=== PATIENT | male | born 1975 | race Caucasian/White ===

== ENCOUNTER 2025-01-02 07:34 | Emergency (ER) | payer OTHER, SELFPAY ==
--- NOTE | ~2025-01-02 | XR_ITS ---
XR chest 2V Ordering provider: Clarisse Nolan MD History: 49 years Male with . chest pain X 1 WEEK . Comparison: None. FINDINGS: MEDIASTINUM: The cardiac silhouette is not enlarged. LUNGS: No infiltrates, effusions or pneumothorax. OTHER: No free air under the diaphragm. Degenerative changes of the spine. IMPRESSION: No acute cardiopulmonary pathology. Reviewed, dictated and finalized at location A.
--- NOTE | ~2025-01-02 | CT_ITS ---
CTA chest abdomen pelvis Ordering provider: Clarisse Nolan MD History: . severe L chest pain, ?LLE tingling, hypertensive . Comparison: None. Technique: CT angiogram chest, abdomen and pelvis was performed following timed intravenous injection of contrast. Thin slice axial images and reformatted coronal images were obtained. Three dimensional reformatted images of the chest were also obtained using a [employer] workstation. Radiation reduction t echnique utilized. The dose-length product was 1863 mGy-cm. 100 mL Omnipaque 350 was given IV. FINDINGS: CHEST: --THORACIC AORTA: normal. No aneurysm, dissection or mediastinal hematoma. --GREAT VESSELS: Normal as visualized. --PULMONARY ARTERIES: No pulmonary embolus. --VISUALIZED THORACIC INLET: Normal. --MEDIASTINUM: Coronary arteries: Normal. Heart/other: The heart is not enlarged. Lymph nodes: No mediastinal or hilar adenopathy. Calcified left hilar lymph nodes are noted. --LUNGS: No pulmonary nodules or masses. No effusions. No pneumothorax. Calcified granuloma in the left lung b ase. Bilateral groundglass appearance in the lower lobes which may indicate atelectasis versus edema versus early pneumonia. Follow-up advised. --MUSCULOSKELETAL: Superficial soft tissues: The superficial soft tissues are normal. Bones: Age appropriate degenerative changes of the spine. ABDOMEN/PELVIS: --MUSCULOSKELETAL: Bones: Age appropriate degenerative changes of the spine. Old fracture in the right greater trochante r of the femur. Superficial soft tissues: Postoperative changes in the anterior abdominal wall. Otherwise, The superf icial soft tissues are normal. --UPPER ABDOMINAL ORGANS: Liver: Normal. Gallbladder: Contracted. Spleen: Normal. Stomach/duodenum: Normal. Pancreas: Normal. Adrenals: Normal. Kidneys: Normal. --PELVIC ORGANS: The bladder is normal. No bladder stones. --BOWEL AND MESENTERY: Colon: No evidence of diverticulitis. Appendix is not demonstrated. Small Bowel: Normal. No obstruction. Peritoneum/mesentery: No free air or free fluid. No mesenteric lymphadenopathy. --RETROPERITONEUM: No retroperitoneal lymphadenopathy. Small para-aortic lymph nodes are noted. --ARTERIES: ABDOMINAL AORTA: Normal No aneurysm or dissection. RENAL ARTERIES: Normal. CELIAC AXIS: Normal. SMA: Normal. EMIL: Normal. ILIAC AND VISUALIZED FEMORAL ARTERIES: Normal. MESENTERIC ARTERIES: Normal. IMPRESSION: CHEST: 1. No evidence of aneurysm or dissection. 2. Groundglass appearance seen in the lower lobes which may indicate atelectasis versus pneumonia ve rsus edema. Clinical correlation and follow-up advised. ABDOMEN/PELVIS: 1. No acute abdominal process with no evidence of appendicitis, diverticulitis or intestinal obstruc tion. 2. No evidence of aneurysm or dissection seen in the aorta. Reviewed, dictated and finalized at location A. IMPRESSION: CHEST: 1. No evidence of aneurysm or dissection. 2. Groundglass appearance seen in the lower lobes which may indicate atelectas is versus pneumonia versus edema. Clinical correlation and follow-up advised. ABDOMEN/PELVIS: 1. No acute abdominal process with no evidence of appendicitis, diverticulitis or intestinal obstruction. 2. No evidence of aneurysm or dissection seen in the aorta.
--- NOTE | 2025-01-02 07:36 | ECG_ITS ---
Test Date: 2025-01-02 07:39:49 Measurements Intervals [place] Rate: 87 P: 48 MN: 144 QRS: 21 QRSD: 83 T: 145 QT: 358 QTc: 433 Interpretive Statements SINUS RHYTHM POOR R-WAVE PROGRESSION NONSPECIFIC T-WAVE ABNORMALITY ABNORMAL ECG No previous ECG available for comparison Electronically Signed On 01-03-2025 09:49:42 CDT by Douglas Fernandes M.D.
--- OUTSIDE RECORDS SUMMARY | 2025-01-02 07:37 | XMS_ITS | Encounter Summary ---
Author Organization [facility] Address [address] [place] [address] Phone Care Team Providers Care Coverage Analyst Name Role Phone Ori Santiago MD Primary Care Provider [phone] Trace Meza MD Unavailable Ld Crowley MD Unavailable [phone] Provider, None Primary Care Provider Unavailabl e Reason for Visit * Reason Comments Medication Refill Encounter Details Date Type Department Care Team (Late st Contact Info) Description 02/12/2023 [facility]ill [facility] - [place] [address] [place] [address] Trace Meza MD #[address] [address] Medication Refill Social History Tobacco Use Types Packs/Day Years Used Date Smoking Tobacco: Never Smokeless Tobacco: Never Alcohol Use Standard Drinks/Week Comments No 0 (1 standard drink = 0.6 oz pur e alcohol) Sexually Active Control Partners Comments Yes Female Sex and Gender Information Value Date Recorded Sex Assigned at Male 06/17/2024 6:48 AM MACHINERY MECHANIC Legal Sex Male 11:35 PM CDT Gender Identity Male 06/17/2024 6:48 AM MACHINERY MECHANIC Sexual Orientation Not on file documented as of this encounter Miscellaneous Notes * Telephone Encounter - Lisa Lennon RN - 02/13/2023 8:50 AM CDT Requested Prescriptions Pending Prescriptions Disp Refills ??? Continuous Blood Gluc Sensor (Dexcom G6 Sensor) Misc [Pharmacy Med Name: DEXCOM G6 SENSOR] 3 Sig: USE 1 EACH BY DOES NOT APPLY ROUTE EVERY 10 DAYS. CHANGE SENSOR EVERY 10 DAYS. Next appt: 03/02/2023 documented in this encounter Plan of Treatment Upcoming Encounters Date Type Department Care Team (Late st Contact Info) Description 01/11/2025 9:30 AM CDT Office Visit [facility] Endocrinology - [place] [address] [place] [address] Trace Meza MD #[address] [phone] 03/22/2025 9:00 AM CDT Office Visit [facility] Endocrinology [facility] [address] [place] [address] Trace Meza MD #[address] [phone] documented as of this encounter Visit Diagnoses Not on filedocumented in this encounter Care Teams Coverage Analyst Relationship Specialty Start Date End Date Ori Santiago MD [address] [place] [address] [address] [place] [address] PCP - General Primary Care 06/19/22 06/16/24 Provider, None [place] PCP - General 06/17/24 Trace Meza MD #[address] [phone] Consulting Physician Endocrinology 04/06/23 Ld Crowley MD #2 [facility] [address] [place] [address] Consulting Physician Urology 09/21/23 documented as of this encounter
--- OUTSIDE RECORDS SUMMARY | 2025-01-02 07:37 | XMS_ITS | Encounter Summary ---
Author Organization [facility] Address [address] [place] [address] Phone Care Team Providers Care Factory Process Workers Name Role Phone Provider, None Primary Care Provider Unavailabl e Ori Santiago MD Primary Care Provider [phone] Trace Meza MD Unavailable Ld Crowley MD Unavailable Provider, None Primary Care Provider Unavailabl e Reason for Visit * Reason Comments Medication Refill Encounter Details Date Type Department Care Team (Late st Contact Info) Description 12/01/2021 Refill [facility] - [place] [address] [place] [address] Trace Meza MD #[address] [address] Medication Refill Social History Tobacco Use Types Packs/Day Years Used Date Smoking Tobacco: Never Smokeless Tobacco: Never Alcohol Use Standard Drinks/Week Comments No 0 (1 standard drink = 0.6 oz pur e alcohol) Sexually Active Control Partners Comments Yes Female Sex and Gender Information Value Date Recorded Sex Assigned at Male 06/17/2024 6:48 AM MAILROOM MESSENGER Legal Sex Male 11:35 PM CDT Gender Identity Male 06/17/2024 6:48 AM MAILROOM MESSENGER Sexual Orientation Not on file documented as of this encounter Miscellaneous Notes * Telephone Encounter - Vale Mcdonough CMA - 12/02/2021 8:35 AM CDT Patient calling requesting refill of: Requested Prescriptions Pending Prescriptions Disp Refills ??? HumuLIN R U-500 KwikPen 500 UNIT/ML Solution Pen-injector [Pharmacy Med Name: HUMULIN R 500 UNIT/ML KWIKPEN] 1 Sig: INJECT 170 UNITS AT BREAKFAST AND 150 UNITS AT DINNER Last fill: Patients next office visit with ENDO is: 12/20/2021 documented in this encounter Plan of Treatment Upcoming Encounters Date Type Department Care Team (Late st Contact Info) Description 01/11/2025 9:30 AM CDT Office Visit [facility] - Endocrinology - [place] [address] [place] [address] Trace Meza MD #[address] [address] 03/22/2025 9:00 AM CDT Office Visit [facility] Endocrinology - [place] [address] [place] [address] Trace Meza MD #[address] [address] documented as of this encounter Visit Diagnoses Not on filedocumented in this encounter Care Teams Factory Process Workers Relationship Specialty Start Date End Date Provider, None [place] PCP - General 03/28/21 06/18/22 Ori Santiago MD [address] [place] [address] [facility] [address] [place] [address] PCP - General Primary Care 06/19/22 06/16/24 Provider, None [place] PCP - General 06/17/24 Trace Meza MD #[address] [place] [address] Consulting Physician Endocrinology 04/06/23 Ld Crowley MD [address] [facility] [address] [place] [address] Consulting Physician Urology 09/21/23 documented as of this encounter
--- OUTSIDE RECORDS SUMMARY | 2025-01-02 07:37 | XMS_ITS | Clinical Summary ---
Author Organization [facility] Address [address] [place] [address] Phone Care Team Providers Care Metal Expediter Name Role Phone Trace Meza MD Unavailable Ld Crowley MD Unavailable [phone] Provider, None Primary Care Provider Unavailabl e Allergies Active Allergy Reactions Criticality Noted Date Comments Amlodipine Nausea 07/05/2018 Iodinated Contrast Media Anaphylaxis 07/09/2018 Ibuprofen Hives 07/02/2018 Medications Blood Glucose Monitoring Suppl Device Test four times daily. 1 Each 08/12/19 20 Active Lancets Misc Test four times daily. 400 Lancet 3 08/12/19 20 Active Glucose Blood Strip Test four times daily. 400 Strip 3 08/12/19 20 Active Insulin Syringe-Needle U-100 (INSULIN SYRINGE 1CC/30GX5/16) 30G X 5/16 1 ML Misc Use to inject insulin 2x daily 200 Each 3 05/30/20 20 Active Glucose Blood (OneTouch Verio) Strip Test blood glucose 4x daily. 400 Strip 3 06/02/20 22 Active Blood Glucose Monitoring Suppl (OneTouch Verio) w/Device Kit 1 Kit by Does not apply route 4 times daily. Test blood glucose 4x daily. 1 Kit 06/02/20 22 Active OneTouch Delica Lancets 33G Misc 1 Lancet by Does not apply route 4 times daily. Test blood glucose 4x daily. 400 Lancet 3 06/02/20 Active aspirin 81 MG Chewable Tablet Chew 1 tablet every day by oral route. 04/20/20 Active polyethylene glycol (GLYCOLAX, MIRALAX) 17 g PackIndication s:Constipation Take 1 Packet by mouth 2 times daily as needed for Constipation - 1st line. Dissolve in 4-8 oz of liquid. Indications: Constipation 90 Packet 10/08/19 Active Additional Information Patient not taking.Reported on 12/19/2024 senna (SENOKOT) 8.6 MG Tablet Take 1 Tablet by mouth 2 times daily as needed for Constipation - 2nd line. 30 Tablet 10/08/19 Active Additional Information Patient not taking.Reported on 12/19/2024 HYDROcodone-ac etaminophen (NORCO) 10-325 MG TabletIndicati ons:Greater trochanter fracture (HCC) Take 1 Tablet by mouth every 6 hours as needed for Moderate or more severe pain. 30 Tablet 10/08/19 Active Additional Information Patient not taking.Reported on 12/19/2024 naloxone HCl (Narcan) 4 MG/0.1ML Liquid 1 [place] by Nasal route as needed for Opioid Reversal. Administer in one nostril for symptoms of overdose (severe sleepiness, breathing problems, not responsive). Call 911. May repeat 1 spray in alternate nostril in 2-3 minutes if needed. 2 Each 11/23/19 24 Active Additional Information Patient not taking.Reported on 12/19/2024 Continuous Glucose Transmitter (Dexcom G6 Transmitter) Misc USE 1 EACH BY DOES NOT APPLY ROUTE EVERY 90 DAYS. CHANGE TRANSMITTER EVERY 90 DAYS. 1 Each 12/18/19 24 Active ondansetron (ZOFRAN-ODT) 4 MG TABLET DISPERSIBLE Take 1 Tablet by mouth every 6 hours as needed for Nausea - 1st line. 10 Tablet 1 02/08/20 24 Active Additional Information Patient not taking.Reported on 12/19/2024 Continuous Glucose Sensor (Dexcom G7 Sensor) Misc Every 10 days 9 Each 3 03/14/20 24 Active testosterone cypionate (DEPO-TESTOSTE NAV) 200 MG/ML Solution INJECT 1 ML EVERY 2 WEEKS BY INTRAMUSCULAR ROUTE FOR 30 DAYS.-PRIOR AUTH DENIED 07/25/19 25 Active Insulin Pen Needle 31G X 5 MM Misc Use to inject insulin twice daily 200 Pen Needle 3 09/20/19 25 Active Ozempic, 2 MG/DOSE, 8 MG/3ML Solution Pen-injector 2 mg by Subcutaneous route once a week. 9 mL 1 09/20/19 Active sildenafil (REVATIO) 20 MG Tablet 100 mg daily as needed for ED 09/20/19 Active Additional Information Patient not taking.Reported on 12/19/2024 Continuous Glucose Senior Care Provider (Dexcom G7 Senior Care Provider) Device Use to check blood glucose 4x daily. 1 Each 09/29/19 Active metFORMIN (GLUCOPHAGE) 1000 MG Tablet TAKE 1 TABLET BY MOUTH TWICE A DAY WITH FOOD 180 Tablet 1 11/19/19 Active insulin regular human, CONCENTRATED, (HumuLIN R U-500 KwikPen) 500 UNIT/ML Solution Pen-injector 120 units in the morning and 180 units in the evening 60 mL 1 12/20/19 Active insulin regular human, CONCENTRATED, (HumuLIN R U-500 KwikPen) 500 UNIT/ML Solution Pen-injector 90 units at breakfast and 60 units at dinner 09/20/192024 Discontinued Active Problems Problem Noted Date Diagnosed Date HLD (hyperlipidemia) 10/08/2023 GERD (gastroesophageal reflux disease) Diabetes mellitus 10/08/2023 SBO (small bowel obstruction) 10/08/2023 Greater trochanter fracture 10/07/2023 Hypoglycemia 08/12/2019 Erectile dysfunction 04/20/2019 Class 3 severe obesity due t o excess calories with serious comorbidity and body mass index (BMI) of 45.0 to 49.9 in adult 11/12/2018 Acute kidney injury 07/22/2018 Hyperglycemia 07/22/2018 Sepsis due to undetermined organism 07/05/2018 Ventral hernia with obstruction and without gang christos 07/03/2018 Type 2 diabetes mellitus wit h hyperglycemia, with long-term current use of insulin 07/03/2018 Morbid obesity 07/03/2018 Hypertension 07/03/2018 Fracture of forearm 11/12/2017 Encounters Date Type Department Care Team Description 12/19/2024 8:45 AM CDT [facility] Visit [facility] [place] [address] Trace Meza MD Type 2 diabetes mellitus with hyperglycemia, with long-term current use of insulin (HCC) (Primary Dx); Class 3 severe obesity due to excess calories with serious comorbidity and body mass index (BMI) of 40.0 to 44.9 in adult; Insulin dose changed (HCC); Medication side effect; Hypoglycemia Discharge Disposition: Discharged to home or Selfcare 12/19/2024 Travel 12/16/[facility] [place] [address] Trace Meza MD Medication Refill 11/18/2024 [facility] [place] [address] Trace Meza MD Medication Refill from Last 3 Months Immunizations Immunization Administration Dates Next Due TDAP Vaccine 10/23/2017 Family History Medical History Relation Name Comments No Known Problems Brother No Known Problems Daughter Diabetes Father Other-comment Father covid No Known Problems Half-Brother 1 No Known Problems Half-Brother 2 No Known Problems Mother Leukemia/Lymphoma Sister No Known Problems Son Relation Name Status Comments Brother Alive Daughter Alive Father Half-Brother 1 Alive Same father Half-Brother 2 Alive Same father Maternal Grandfather Maternal Grandmother Mother Paternal Grandfather Paternal Grandmother Sister Alive Son Alive Social History Tobacco Use Types Packs/Day Years Used Date Smoking Tobacco: Never Smokeless Tobacco: Never Tobacco Cessation:Counseling Given: Not Answered Alcohol Use Standard Drinks/Week Comments No 0 (1 standard drink = 0.6 oz pur e alcohol) [facility] Utilities Answer Date Recorded In the past 12 months has e [employer], [employer], oil, or water [employer] threatened to shut off services in your home? No 10/07/2023 Hunger Vital Sign Answer Date Recorded Within the past 12 months, y ou worried that your food would run out before you got the money to buy more. Never true 10/07/19 24 Within the past 12 months, t he food you bought just didn't last and you didn't have money to get more. Never true 10/07/2023 PRAPARE - Transportation Answer Date Re corded In the past 12 months, has l ack of transportation kept you from medical appointments or from getting medications? No 09/20 In the past 12 months, has l ack of transportation kept you from meetings, work, or from getting things needed for daily living? No 10/07/2023 Housing Stability Vital Sign Answer Luis e Recorded In the last 12 months, was t here a time when you were not able to pay the mortgage or rent on time? No 10/07/2023 In the last 12 months, how many places have you lived? 1 10/07/2023 In the last 12 months, was t here a time when you did not have a steady place to sleep or slept in a senior living (including now)? No 10/07/2023 Sexually Active Control Partners Comments Yes Female Sex and Gender Information Value Date Recorded Sex Assigned at Male 06/17/2024 6:48 AM COLORER HIDES AND SKINS Legal Sex Male 11:35 PM CDT Gender Identity Male 06/17/2024 6:48 AM COLORER HIDES AND SKINS Sexual Orientation Not on file Last Filed Vital Signs Vital Sign Reading Time Taken Comments Blood Pressure 156/96 12/19/2024 8:42 AM CDT Pulse 106 12/19/2024 8:42 AM CDT Temperature 36.9 C (98.4 F) 12/19/2024 8:42 AM CDT Respiratory Rate 22 12/19/2024 8:42 AM CDT Oxygen Saturation 97% 12/19/2024 8:42 AM CDT Inhaled Oxygen Concentration - - Weight 122.1 kg (269 lb 3.2 oz) 12/19/2024 8:42 AM CDT Height 170.2 cm (5' 7) 06/17/2024 6:28 AM COLORER HIDES AND SKINS Body Mass Index 42.16 06/17/2024 6:28 AM COLORER HIDES AND SKINS Plan of Treatment Upcoming Encounters Date Type Department Care Team (Late st Contact Info) Description 01/11/2025 9:30 AM CDT Office Visit [facility] - Endocrinology - [place] [address] [place] [phone] Trace Meza MD [address] [place] [address] 03/22/2025 9:00 AM CDT Office Visit [facility] - Endocrinology [place] [address] [place] [address] Trace Meza MD [address] [address] Health Maintenance Due Date Last Done Comments Diabetes: Eye Exam 1976 Hepatitis C Virus (HCV) Screening 1976 Hepatitis B Immunization (1 of 3 - 19+ 3-dose series) 1995 Pneumococcal Immunization Combined (1 of 2 - PCV) 1995 Cologuard 2021 Colonoscopy 2021 Colorectal Cancer Screening 2021 Immunochemical Fecal Occult Blood 2021 SARS-COV-2 Immunization ( season) 2024 Influenza Immunization (#1) 2025 Diabetes: Foot Exam 05/16/2025 05/16/2024 Diabetes: Nephropathy Screening 06/17/2025 06/17/2024, 09/27/2023, 09/14/2023, Additional history exists Diabetes: Hemoglobin A1c 06/20/202512/19/ 025, 08/19/2024, 05/16/2024, Additional history exists Td Immunization Every 10 Years (Adults With 1 Tdap) 10/24/2027 10/23/2017 Respiratory Syncytial Virus (RSV) Immunization (Adult) (1 - 1-dose 75+ series) 2051 DTaP/Tdap/Td Immunization Discontinued 10/23/2017 Human Papillomavirus (HPV) Immunization Aged Out No longer eligible based on patient's age to complete this topic Meningococcal Immunization (ACWY) Aged Out No longer eligible based on patient's age to complete this topic Rotavirus Immunization Aged Out No lo nger eligible based on patient's age to complete this topic Medical Devices Implanted Type Area Energy Efficiency Specialist Device Identifier Shelf Expiration Date Model / Serial / Lot Mesh Srg Ventralight St Sepra Echo Ps 9x7in Mfl Ltwt Abs Loprfl Strl Seprafilm Polyp Hydrogel - [id number] Implanted:Qty: 1 on 07/03/2018 by Mehran Del Cid MD at [facility] IMPLANT N/A: Abdomen [employer] 03/19/2020 [id number] / [id number] / [id number] Procedures Procedure Name Priority Date/Time Associated Diagnosis Comments POCT GLYCOSYLATED HEMOGLOBIN Routine 12/19/2024 8:47 AM CDT Type 2 diabetes mellitus with hyperglycemia, with long-term current use of insulin (HCC) CMP (COMPREHENSIVE METABOLIC PANEL) STAT 06/17/2024 6:43 AM COLORER HIDES AND SKINS from Last 3 Months or Most Recently Relevant to Health Maintenance Results * (ABNORMAL) POCT GLYCOSYLATED HEMOGLOBIN (12/19/2024 8:47 AM CDT) HGB-A1C 12.4(A) 4 - 6 % Blood 12/19/2024 8:47 AM CDT us Trace Meza MD POINT OF CARE TESTING (MANUAL) F inal Result * (ABNORMAL) Comprehensive Metabolic Panel (Cmp) [id number] (06/17/2024 6:43 AM COLORER HIDES AND SKINS) SODIUM 139 136 - 145 mmol/L 06/17/2024 7:11 AM COLORER HIDES AND SKINS [facility] POTASSIUM 3.9 3.5 - 5.1 mmol/L 06/17/2024 7:11 AM COLORER HIDES AND SKINS [facility] CHLORIDE 110(H) 98 - 107 mmol/L 06/17/2024 7:11 AM COLORER HIDES AND SKINS [facility] CO2, VENOUS 21(L) 22 - 30 mmol/L 06/17/2024 7:11 AM COLORER HIDES AND SKINS [facility] ANION GAP 11.9 <18.0 mmol/L 06/17/2024 7:11 AM COLORER HIDES AND SKINS [facility] GLUCOSE 164(H) 70 - 99 mg/dL 06/17/2024 7:11 AM COLORER HIDES AND SKINS [facility] BUN 15 9 - 21 mg/dL 06/17/2024 7:11 AM [facility] CREATININE, BLOOD 1.09 0.70 - 1.30 mg/dL 06/17/2024 7:11 AM COLORER HIDES AND SKINS [facility] BUN/CREATININE RATIO 14 12 - 20 ratio 06/17/2024 7:11 AM [facility] TOTAL PROTEIN 6.7 6.3 - 8.2 g/dL 06/17/2024 7:11 AM [facility] ALBUMIN 3.6 3.5 - 5.0 g/dL 06/17/2024 7:11 AM [facility] A/G RATIO 1.2 1.0 - 2.2 06/17/2024 7:11 AM [facility] CALCIUM 9.2 8.7 - 10.5 mg/dL 06/17/2024 7:11 AM [facility] T BILI 0.6 0.2 - 1.2 mg/dL 06/17/2024 7:11 AM [facility] SGOT (AST) 16 5 - 34 U/L 06/17/2024 7:11 AM [facility] SGPT (ALT) 12 0 - 55 U/L 06/17/2024 7:11 AM [facility] ALKALINE PHOSPHATASE 72 40 - 150 U/L 06/17/2024 7:11 AM [facility] GFR, ESTIMATED >60 >=60 06/17/2024 7:11 AM [facility] Comment: Creatinine Clearance is the preferred criteria for selecting drug dose adjustments in renally impaired patients. The GFR is provided as additional pertinent clinical information. GFR is reported in mL/min/1.73 sq m. Calculation based on the Chronic Kidney Disease Epidemiology Collaboration (CKD- EPI) equation refit without adjustment for race. GFR, EST. >60 >=60 024 7:11 AM [facility] GFR, EST. NONAFRICAN >60 >=60 06/17/2024 7:11 AM [facility] Blood Venipuncture / Unknown 06/17/2024 6:43 AM COLORER HIDES AND SKINS 06/17/2024 6:48 AM COLORER HIDES AND SKINS Jono Bhatti MD CHEMISTRY ORDERABLES Final Result [facility] [place] [address] from Last 3 Months or Most Recently Relevant to Health Maintenance Insurance MEDICAID [employer] [facility] Advance Directives * Full Code (Latest Code Status on File) Date Activated Date Inactivated Comments 10/07/2023 9:10 PM 10/08/2023 5:47 PM CPR-Full Ronny atment: FULL ARREST: Attempt Resuscitation/CPR wit intubation and mechanical ventilation. PRE-ARREST: Use entire range of life support measures to stabilize the patient. * Full Code Date Activated Date Inactivated Comments 07/02/2018 11:49 PM 07/06/2018 6:13 PM CPR-Full Tr eatment: FULL ARREST: Attempt Resuscitation/CPR wit intubation and mechanical ventilation. PRE-ARREST: Use entire range of life support measures to stabilize the patient. Care Teams Metal Expediter Relationship Specialty Start Date End Date Provider, None [place] PCP - General 06/17/24 Trace Meza MD #2 [facility] [address] [place] [phone] Consulting Physician Endocrinology 04/06/23 Ld Crowley MD [facility]2 [facility] [address] [place] [address] Consulting Physician Urology 09/21/23
--- OUTSIDE RECORDS SUMMARY | 2025-01-02 07:37 | XMS_ITS | Encounter Summary ---
Author Organization [facility] Address [address] [place] [address] Phone Care Team Providers Care Clinical Biochemist Name Role Phone Ori Santiago MD Primary Care Provider [phone] Trace Meza MD Unavailable Ld Crowley MD Unavailable [phone] Provider, None Primary Care Provider Unavailabl e Reason for Visit * Reason Comments Medication Refill Encounter Details Date Type Department Care Team (Late st Contact Info) Description 01/13/2023 Refill [facility] - Endocrinology - [place] [address] [place] [address] Trace Meza MD [address] [phone] Medication Refill Social History Tobacco Use Types Packs/Day Years Used Date Smoking Tobacco: Never Smokeless Tobacco: Never Alcohol Use Standard Drinks/Week Comments No 0 (1 standard drink = 0.6 oz pur e alcohol) Sexually Active Control Partners Comments Yes Female Sex and Gender Information Value Date Recorded Sex Assigned at Male 06/17/2024 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 gabapentin (NEURONTIN) 100 MG Capsule [Pharmacy Med Name: GABAPENTIN 100 MG CAPSULE] 180 Capsule 0 Sig: TAKE 1 CAPSULE BY MOUTH TWICE A DAY Next appt: 01/19/2023 documented in this encounter Plan of Treatment Upcoming Encounters Date Type Department Care Team (Late st Contact Info) Description 01/11/2025 9:30 AM CDT Office Visit [facility] Endocrinology [facility] [address] [place] [phone] Trace Meza MD [address] [phone] 03/22/2025 9:00 AM CDT Office Visit [facility] Endocrinology - [place] [address] [place] [phone] Trace Meza MD #[address] [phone] documented as of this encounter Visit Diagnoses Not on filedocumented in this encounter Care Teams Clinical Biochemist Relationship Specialty Start Date End Date Ori Santiago MD [address] [place] [address] [facility] [address] [place] [address] PCP - General Primary Care 06/19/22 06/16/24 Provider, None [place] PCP - General 06/17/24 Trace Meza MD [address] [phone] Consulting Physician Endocrinology 04/06/23 Ld Crowley MD #2 [facility] [address] [place] [address] Consulting Physician Urology 09/21/23 documented as of this encounter
--- OUTSIDE RECORDS SUMMARY | 2025-01-02 07:37 | XMS_ITS | Referral Summary ---
Author Organization [facility] Medical Office Building [facility] Address [address] [place] [address] Care Team Providers Care Log Chipper Name Role Phone Tabitha Aquino NP Primary Care Provider Allergies Active Allergy Reactions Criticality Noted Date Comments Amlodipine Nausea Only 07/05/2018 Ibuprofen Rash Reaction: Rash, Iodinated Contrast Media Other (See comments) High Metformin Diarrhea Low 12/08/2017 Metrizamide Other (See comments) High Medications atorvastatin (LIPITOR) 10 mg tablet take 1 tablet by oral route every evening 90 3 11/12/19 16 Active Additional Information Patient not taking.Reported on 07/19/2018 blood-glucose meter (ACCU-CHEK CHAUNCEY PLUS METER) misc check glucose once daily 1 each 0 03/02/20 14 Active lancets (ACCU-CHEK FASTCLIX) misc check glucose 30 each 3 03/02/20 14 Active insulin syringe-needle U-100 (INSULIN SYRINGE) 1 mL 30 gauge x 5/16 syringe use with insulin x1/day 1 Box 6 05/26/20 12 Active aspirin 81 mg chewable tablet Take 81 mg by mouth daily. Active amLODIPine (NORVASC) 10 mg tablet Take 1 tablet (10 mg total) by mouth daily. 30 tablet 12/24/19 18 Active Additional Information Patient not taking.Reported on 07/19/2018 acetaminophen (TYLENOL) 325 mg tabletIndications: Pain Take 2 tablets (650 mg total) by mouth every 4 (four) hours as needed for pain. 30 tablet 02/03/20 18 Active Additional Information Patient not taking.Reported on 07/19/2018 insulin aspart U-100 (NovoLOG U-100 Insulin aspart) 100 unit/mL injection Inject 20 Units under the skin 3 (three) times a day before meals. Active insulin lispro (HumaLOG) 100 unit/mL injection Inject under the skin with meals average U per day 48 10 mL 1 06/17/20 18 Active insulin glargine (LANTUS,BASAGLAR) 100 unit/mL (3 mL) insulin pen Inject 80 unites under the skin nightly 10 pen 1 06/17/20 18 Active lisinopril (PRINIVIL,ZESTRIL) 10 mg tablet lisinopril 10 mg tablet Active metoprolol XL (TOPROL-XL) 25 mg 24 hr tablet TK 1 T PO D 3 07/06/19 19 Active HYDROcodone-acetam inophen (NORCO) 5-325 mg per tabletIndications: Pain Take 1 tablet by mouth every 6 (six) hours as needed for pain. 25 tablet 07/19/19 19 Active pen needle, diabetic (BD ULTRA-FINE MINI PEN NEEDLE) 31 gauge x 3/16 needle Use to inject insulins 4 times each day 400 each 3 02/18/20 19 Active ondansetron ODT (ZOFRAN-ODT) 4 mg disintegrating tablet Take 1 tablet (4 mg total) by mouth every 8 (eight) hours as needed for nausea or vomiting 20 tablet 10/25/19 24 Active LORazepam (Ativan) 1 mg tabletIndications: Facilitation of outpatient MRI Take 1 tablet (1 mg total) by mouth once for 1 dose 1 tablet 10/25/19 24 Active Active Problems Problem Noted Date Diagnosed Date Closed Galeazzi's fracture of left radius 2018 Ventral hernia with bowel obstruction 02/16/2018 SBO (small bowel obstruction) 02/01/2018 Assessment & Plan (02/02/2018 10:52 AM CDT): Presented w/ n/v w/ CT demonstrating persistent abdominal wall defect deep to mesh w/ fat protruding and sign of SBO 2/2 adhesion. Currently tolerating PO - continue management by primary team Assessment & Plan (02/02/2018 1:04 PM CDT): History of VHR at OSH in 2006 and 2008 complicated by wound infections requiring secondary closure with a wound VAC. He reports gaining about 100 pounds after these surgeries and subsequently being diagnosed with diabetes. He presented to the hospital with abdominal pain and obstructive type symptoms. -CT abd: possible transition point right lower quadrant with mildly dilated small bowel above this point and completely decompressed small bowel below this point, consistent with small bowel obstruction, likely due to adhesion -CT reviewed by surgery team -- possible transition pt although unimpressive proximal dilation, stomach decompressed; non-obstructive symptoms (bowel movements, benign abdominal exam) He was clinically improving and given a PO challenge. He began having BM's and tolerating a diet. He was cautioned not to do heavy lifting to aggravate his hernia and encouraged to loose weight. He was referred to Dr. Tam by his PCP and will follow up with Dr. Tam 02/16/18. Uncontrolled type 2 diabetes mellitus with hyperglycemia, with long-term current use of insulin 04/14/2017 Cellulitis of leg, except foot 12/20/2015 Overview (09/26/2016): Cellulitis of right leg without foot Abscess of groin, right Cellulitis of scrotum Uncontrolled type 2 diabetes mellitus with complication, with long-term current use of insulin Assessment & Plan (02/02/2018 1:47 PM CDT): Type II Diabetes a1c 9.8- Patient reports 80U glargine, 18-24U meal time, fastin 200's and meal time 110's. While inpatient patient is on 60U lantus and fasting BG has been much more controlled but this is likely 2/2 NPO status. As patient advances to solid diet, would expect patient to require bolus dosing of insulin as well as SSI. TDD based on weight for obese patient is 120U, this can be divided into basal and bolus doses - Agree with 60U Lantus qhs for basal. Would start with 15U short acting insulin before meals with high dose SSI. - Please start patient on diabetic diet - Agree with in service educator consult. Please have patient meet with them prior to discharge. Assessment & Plan (02/02/2018 1:10 PM CDT): Diagnosed with diabetes after a 100 pound weight gain. He started on Lantus. His hemoglobin A1c was 11.2 in November and is now 9.8. Endocrine was consulted and they agree with his Lantus at 60U Q evening and regular insulin before meals at 15U and a high dose SSI. Diabetes nurse educator also consulted for reinforcement and further education and importance of keeping blood glucose controlled. Hyperglycemia Normocytic anemia Morbid obesity Acute kidney injury Acute cystitis without hematuria Uncontrolled hypertension Acute right-sided low back pain with left-sided sciatica Social History Tobacco Use Types Packs/Day Years Used Date Smoking Tobacco: Former Cigarettes Smokeless Tobacco: Never Alcohol Use Standard Drinks/Week Comments No 0 (1 standard drink = 0.6 oz pur e alcohol) Personal Safety Answer Date Recorded Have you ever been in or are you currently in a harmful physical or emotional relationship or is someone making you feel afraid or unsafe? 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 Gender Identity Not on file Sexual Orientation Not on file Last Filed Vital Signs Vital Sign Reading Time Taken Comments Blood Pressure 184/93 10/25/2023 5:30 PM CDT Pulse 100 10/25/2023 5:30 PM CDT Temperature 36.8 C (98.2 F) 10/25/2023 10:42 AM CDT Respiratory Rate 17 10/25/2023 5:30 PM CDT Oxygen Saturation 94% 10/25/2023 5:30 PM CDT Inhaled Oxygen Concentration - - Weight 124.7 kg (275 lb) 12/05/2023 7:09 AM CDT Height 170.2 cm (5' 7) 12/05/2023 7:09 AM CDT Body Mass Index 43.07 12/05/2023 7:09 AM CDT Plan of Treatment Not on file Medical Devices Implanted Type Area Realtime Court Reporter Device Identifier Shelf Expiration Date Model / Serial / Lot Orthopedic Hardware-Left Arm Left: Arm Description:Left arm 12 inch plate wrist to elbow Screws holding the plate in place Procedures Procedure Name Priority Date/Time Associated Diagnosis Comments EGFR STAT 10/25/2023 12:57 PM CDT HEMOGLOBIN A1C Routine 02/01/2018 4:04 AM CDT LIPID PANEL STAT 01/31/2018 11:38 PM CDT HEPATITIS PANEL, ACUTE STAT 12/17/2017 12:34 PM CDT DIABETES FOOT EXAM Routine 12/08/2017 DIABETES EYE EXAM Routine 08/19/2016 from Last 3 Months or Most Recently Relevant to Health Maintenance Results * eGFR (10/25/2023 12:57 PM CDT) eGFR 63 >=60 mL/min/1. 73 m2 Comment: Interpretive Data Reference Interval Normal >/= 90 mL/min/1.73m2 Mildly decreased* 60 - 89 mL/min/1.73m2 Mildly to moderately decreased 45 - 59 mL/min/1.73m2 Moderately to severely decreased 30 - 44 mL/min/1.73m2 Severely decreased 15 - 29 mL/min/1.73m2 Kidney Failure < 15 mL/min/1.73m2 *Relative to young adult level Estimated glomerular filtration rate is determined by the 2020 CKD-EPI equation recommended by the National Kidney Foundation (A Unifying Approach to GFR Estimation: Recommendations of the NKF-ASK Task Force on Reassessing the Inclusion of Race in Diagnosing Kidney Disease, JASN 2020). The CKD-EPI equation should not be used for patients with unstable renal function and has not been validated in children and those over 70. Current interpretive data was last reviewed 2021. Blood 10/25/2023 12:5 7 PM CDT 10/25/2023 1:07 PM CDT us John Dodson MD LAB BLOOD ORDERABLES Julieta keith Result [facility] [place] [address] * (ABNORMAL) Hemoglobin A1c (02/01/2018 4:04 AM CDT) Hgb A1C 9.8(H) 4.0 - 5.6 % [facility] Estimated Average Glucose 235 mg/dL [facility] Comment: The ADA recommends reporting an estimated Average Glucose (eAG) with all Hemoglobin A1c results using the equation derived from a study of 507 normal and diabetic adults. Minority populations were underrepresented and children were not included. (Diabetes Care 31:3339-7625, 2008). The eAG is not equivalent to a fasting glucose. Blood specimen (specimen) 02/01/2018 4:04 AM CDT 02/01/2018 4:11 AM CDT Narrative [facility] - 02/01/2018 6:34 AM CDT THE COLLECTION LOCATION IS [place] [address] us George Manriquez MD LAB BLOOD ORDERABLES nal Result [facility] [place] [address] * (ABNORMAL) Lipid panel (01/31/2018 11:38 PM CDT) Cholesterol 230(H) 30 - 200 mg/dL [facility] Comment: Interpretive Data Desirable: <200 mg/dL Borderline high: 200-239 mg/dL High: > or = 240 mg/dL Literature Reference: National Cholesterol Education Program (NCEP) Expert Panel on Detection, Evaluation, and Treatment of High Blood Cholesterol in Adults (Adult Treatment Panel III). Circulation 2004; 110:227. Current interpretive data was last revised on 2015. Triglycerides 239(H) 0 - 150 mg/dL [facility] Comment: Interpretive Data Desirable: < 150 mg/dL Borderline High: 150 - 199 mg/dL High: 200 - 499 mg/dL Very High: > or = 499 mg/dL Literature Reference: See Cholesterol Current interpretive data was last revised on 2015. HDL 41 >=40 mg/dL [facility] Comment: Interpretive Data Less than 40 mg/dL - low; A major risk factor for heart disease. Greater than or equal to 60 mg/dL - High; considered protective of heart disease. Literature Reference: See Cholesterol Current interpretive data was last revised on 2015. LDL, calculated 141(H) 10 - 129 mg/dL [facility] Comment: Interpretive Data Optimal: < 100 mg/dL Near Optimal: 100 - 129 mg/dL Borderline High: 130 - 159 mg/dL High: 160 - 189 mg/dL Very high: > or = 190 mg/dL Literature Reference: See Cholesterol Current interpretive data was last revised on 2015. Non-HDL Cholesterol 189 mg/dL [facility] Comment: Interpretive Data When triglycerides are >200 mg/dL, non-HDL C is a secondary target of therapy, with a goal 30 mg/dL higher than the identified LDL-C goal. Reference: See Cholesterol Reference. Current interpretive data was last revised 2015. Blood specimen (specimen) 01/31/2018 11:38 PM CDT 01/31/2018 11:52 PM CDT Narrative [facility] - 02/01/2018 4:58 PM CDT us Elvira Sinclair MD LAB BLOOD ORDERABLES Final Result [facility] [place] [address] * Hepatitis panel, acute (12/17/2017 12:34 PM CDT) Hep A IgM Negative Negative [facility] ([facility]) Comment:Testing performed by : [facility], [address] [place] [address], [place]., [address] Hep B core IgM Negative Negative [facility] ([facility]) Comment:Testing performed by : [facility], [address] [place] [address]., [address] Hep C Ab Negative Negative [facility] ([facility]) Comment:Testing performed by : [address] [address] HepBsAg Negative Negative [facility] ([facility]) Comment:Testing performed by : [facility], [address] [place] [address]., [address] Blood specimen (specimen) 12/17/2017 12:34 PM CDT 12/17/2017 3:13 PM CDT Narrative [facility] ([facility]) - 12/17/2017 4:11 PM CDT Nabil Castorena MD LAB MICROBIOLOGY - GENERAL OR DERABLES Final Result [facility] ([place]) 1 [facility] Department [place] [address] * DIABETES FOOT EXAM (12/08/2017) Diabetic Foot Exam Unknown Historical Provider HEALTH MAINTENANCE Final Result * DIABETES EYE EXAM (08/19/2016) Diabetic Eye Exam Unknown Historical Provider HEALTH MAINTENANCE Final Result from Last 3 Months or Most Recently Relevant to Health Maintenance Insurance [facility] Advance Directives For more information, please contact: [phone] * Full Code (Latest Code Status on File) Date Activated Date Inactivated Comments 02/01/2018 6:07 AM 02/02/2018 5:51 PM * Full Code Date Activated Date Inactivated Comments 12/12/2017 1:50 PM 12/23/2017 1:51 PM Care Teams Log Chipper Relationship Specialty Start Date End Date Tabitha Aquino NP PCP - General 12/15/17
--- OUTSIDE RECORDS SUMMARY | 2025-01-02 07:37 | XMS_ITS | Clinical Summary ---
Author Organization [facility] Medical Office Building B Address [address] [place] [address] Care Team Providers Care String Studies Director Name Role Phone Tabitha Aquino NP Primary [...] (INSULIN SYRINGE) 1 mL 30 gauge x /16 syringe use with insulin x1/day 1 Box [...] patient on diabetic diet - Agree with telehealth nurse educator consult. Please have patient meet with [...] right-sided low back pain with left-sided sciatica Surgical History Surgery Date Site/Laterality Comments WRIST SURGERY OTHER SURGICAL HISTORY 12/15/2017 I & D perineal abscess OTHER SURGICAL HISTORY 06/22/2017 - 06/21/2018 Left Repair of Fractured Left Arm HERNIA REPAIR ventral hernia repair HERNIA REPAIR 07/03/2018 Laparoscopic Ventral Hernia Repair with Mesh Medical History Medical History Date Comments Hx Other Medical 2009 hernia Hx Other Medical 2009 hernia surgery Hypertension Hypertension Diabetes mellitus (HCC) Diabetes Perineal abscess 12/15/2017 Abdominal hernia Renal disorder Family History Medical History Relation Name Comments Heart disease Brother 1 Other Brother 2 Alive and well; Diabetes Father Diabetes mellit us; Hypertension Father Hypertension; Cancer Sister Leukemia Sister Relation Name Status Comments Brother 1 Alive Brother 2 Alive Brother 3 Alive Father Alive Mother Sister Alive Social History Tobacco Use Types Packs/Day [...] on file 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 Gender Identity Not on file Sexual Orientation Not on file Obstetrics History Last Filed Vital Signs Vital Sign Reading [...] 12/05/2023 7:09 AM CDT Plan of Treatment Health Maintenance Due Date Last Done Comments Albumin Creatinine Ratio, Urine 1976 Colon Cancer Screening-Colonoscopy 1976 Hepatitis B Screening 1994 Regular Well Visit/Exam 18-64 1994 Pneumococcal vaccine <65 (1 of 2 - PCV) 1995 Dilated Eye Exam 08/19/2017 08/19/2016 Hemoglobin A1C 08/04/2018 02/01/2018, 11/21, 11/13/2017, Additional history exists Depression Screening 12/08/2018 12/08/2017, 02/07/20 17 Foot Exam 12/08/2018 12/08/2017, 04/14/2017 Lipid Panel 01/31/2019 01/31/2018, 11/21, 11/13/2017, Additional history exists eGFR 10/24/2024 10/25/2023, 01/21, 02/08/2018, Additional history exists Influenza Vaccine (#1) 2025 DTaP/Tdap/Td Vaccine (2 - Td or Tdap) 10/24/2027 10/23/2017 Hepatitis C Screening Completed 12/17/2017 Medical Devices Implanted Type Area Kerfer Machine Operator Device Identifier Shelf Expiration Date Model / [...] PANEL, ACUTE STAT 12/17/2017 12:34 PM CDT HM DIABETES FOOT EXAM Routine 12/08/2017 DIABETES EYE [...] 7 PM CDT 10/25/2023 1:07 PM CDT John Dodson MD LAB BLOOD ORDERABLES Julieta keith Result [facility] Department [place] [address] * (ABNORMAL) Hemoglobin A1c (02/01/2018 4:04 AM CDT) Hgb A1C 9.8(H) 4.0 - 5.6 % [facility] Estimated Average Glucose 235 mg/dL [facility] Comment: The ADA recommends reporting an estimated Average Glucose (eAG) with all Hemoglobin A1c results using the equation derived from a study of 507 normal and diabetic adults. Minority populations were underrepresented and children were not included. (Diabetes Care 31:0485-2913, 2008). The eAG is not equivalent to a fasting glucose. Blood specimen (specimen) 02/01/2018 4:04 AM CDT 02/01/2018 4:11 AM CDT Narrative [facility] - 02/01/2018 6:34 AM CDT THE BJ COLLECTION LOCATION IS [facility] ED230 us George Manriquez MD LAB BLOOD ORDERABLES Fi nal Result [facility] Department [place] [address] * (ABNORMAL) Lipid panel (01/31/2018 11:38 PM CDT) Cholesterol 230(H) 30 - 200 mg/dL [facility] Comment: Interpretive Data Desirable: <200 mg/dL Borderline high: 200-239 mg/dL High: > or = 240 mg/dL Literature Reference: National Cholesterol Education Program (NCEP) Expert Panel on Detection, Evaluation, and Treatment of High Blood Cholesterol in Adults (Adult Treatment Panel III). Circulation 2004; 110:227. Current interpretive data was last revised on 2015. Triglycerides 239(H) 0 - 150 mg/dL [facility] Comment: Interpretive Data Desirable: < 150 mg/dL Borderline High: 150 - 199 mg/dL High: 200 - 499 mg/dL Very High: > or = 499 mg/dL Literature Reference: See Cholesterol Current interpretive data was last revised on 2015. HDL 41 >=40 mg/dL [facility] Comment: Interpretive Data Less than 40 mg/dL - low; A major risk factor for heart disease. Greater than or equal to 60 mg/dL - High; considered protective of heart disease. Literature Reference: See Cholesterol Current interpretive data was last revised on 2015. LDL, calculated 141(H) 10 - 129 mg/dL [facility] Comment: Interpretive Data Optimal: < 100 mg/dL Near Optimal: 100 - 129 mg/dL Borderline High: 130 - 159 mg/dL High: 160 - 189 mg/dL Very high: > or = 190 mg/dL Literature Reference: See Cholesterol Current interpretive data was last revised on 2015. Non-HDL Cholesterol 189 mg/dL [facility] Comment: Interpretive Data When triglycerides are >200 mg/dL, non-HDL C is a secondary target of therapy, with a goal 30 mg/dL higher than the identified LDL-C goal. Reference: See Cholesterol Reference. Current interpretive data was last revised 2015. Blood specimen (specimen) 01/31/2018 11:38 PM CDT 01/31/2018 11:52 PM CDT Narrative [facility] - 02/01/2018 4:58 PM CDT us Elvira Sinclair MD LAB BLOOD ORDERABLES Final Result [facility] Department [place] [address] * Hepatitis panel, acute (12/17/2017 12:34 PM CDT) Hep A IgM Negative Negative [facility] ([facility]) Comment:Testing performed by : [address] [address] Hep B core IgM Negative Negative [facility] ([facility]) Comment:Testing performed by : [address] [address] Hep C Ab Negative Negative [facility] ([facility]) Comment:Testing performed by : [address] [address] HepBsAg Negative Negative [facility] ([facility]) Comment:Testing performed by : [address] [address] Blood specimen (specimen) 12/17/2017 12:34 PM CDT 12/17/2017 3:13 PM CDT Narrative [facility] ([facility] - 12/17/2017 4:11 PM CDT us Nabil Castorena MD LAB MICROBIOLOGY - GENERAL OR DERABLES Final Result [facility] [place]) 1 [facility] Department [place] [address] * DIABETES FOOT EXAM (12/08/2017) Diabetic Foot Exam Unknown Historical Provider MD HEALTH MAINTENANCE Final Result * DIABETES EYE EXAM (08/19/2016) Diabetic Eye Exam Unknown Historical Provider MD HEALTH MAINTENANCE Final Result from Last 3 Months or Most Recently Relevant to Health Maintenance Insurance [employer] [facility] [facility] [employer] [facility] [employer] Advance Directives For more information, please contact: [phone] * Full Code (Latest Code Status on File) Date Activated Date Inactivated Comments 02/01/2018 6:07 AM 02/02/2018 5:51 PM * Full Code Date Activated Date Inactivated Comments 12/12/2017 1:50 PM 12/23/2017 1:51 PM Care Teams String Studies Director Relationship Specialty Start Date End Date Tabitha Aquino NP PCP - General 12/15/17
--- OUTSIDE RECORDS SUMMARY | 2025-01-02 07:37 | XMS_ITS | Encounter Summary ---
Author Organization [facility] Address [address] [place] [address] Phone Care Team Providers Care Military Source Operations Specialist Name Role Phone Ori Santiago MD Primary Care Provider [phone] Trace Meza MD Unavailable Ld Crowley MD Unavailable [phone] Provider, None Primary Care Provider Unavailabl e Reason for Visit * Reason Comments Medication Refill Encounter Details Date Type Department Care Team (Late st Contact Info) Description 12/16/2022 Refill [facility] - Endocrinology - [place] [address] [place] [address] Trace Meza MD #[address] [address] Medication Refill Social History Tobacco Use Types Packs/Day Years Used Date Smoking Tobacco: Never Smokeless Tobacco: Never Alcohol Use Standard Drinks/Week Comments No 0 (1 standard drink = 0.6 oz pur e alcohol) Sexually Active Control Partners Comments Yes Female Sex and Gender Information Value Date Recorded Sex Assigned at Male 06/17/2024 6:48 AM MANAGER AMBULATORY Legal Sex Male 11:35 PM CDT Gender Identity Male 06/17/2024 6:48 AM MANAGER AMBULATORY Sexual Orientation Not on file COVID-19 Exposure Response Date Recorded In the last 10 days, have yo u been in contact with someone who was confirmed or suspected to have Coronavirus/COVID-19? No / Unsure 12/12/2022 8:22 AM CDT documented as of this encounter Miscellaneous Notes * Telephone Encounter - Lisa Lennon RN - 12/16/2022 8:41 AM CDT Requested Prescriptions Pending Prescriptions Disp Refills ??? metFORMIN (GLUCOPHAGE) 1000 MG Tablet [Pharmacy Med Name: METFORMIN HCL 1,000 MG TABLET] 180 Tablet 1 Sig: TAKE 1 TABLET BY MOUTH TWICE A DAY WITH MEALS Next appt: 01/19/2023 documented in this encounter Plan of Treatment Upcoming Encounters Date Type Department Care Team (Late st Contact Info) Description 01/11/2025 9:30 AM CDT Office Visit [facility] - Endocrinology - [place] [address] [place] [address] Trace Meza MD #[address] [address] 03/22/2025 9:00 AM CDT Office Visit [facility] Endocrinology - [place] [address] [place] [address] Trace Meza MD #[address] [address] documented as of this encounter Visit Diagnoses Not on filedocumented in this encounter Care Teams Military Source Operations Specialist Relationship Specialty Start Date End Date Ori Santiago MD [address] [place] [address] [facility] [address] [place] [address] PCP - General Primary Care 06/19/22 06/16/24 Provider, None [place] PCP - General 06/17/24 Trace Meza MD #[address] [place] [address] Consulting Physician Endocrinology 04/06/23 Ld Crowley MD #2 [facility] [facility] [address] [place] [address] Consulting Physician Urology 09/21/23 documented as of this encounter
--- OUTSIDE RECORDS SUMMARY | 2025-01-02 07:37 | XMS_ITS | Clinical Summary ---
Author Organization [facility] Address [address] [place] [address] Care Team Providers Care Veterinary Medical Officer Name Role Phone Unknown, Provider Primary Care Provider Unavaila ble Source Comments [facility],non-owned Affiliates and Associated Physician Practices is amultiple site organization consisting of ambulatory clinics and hospital sitesin [place], [place], [place] and [place]. This disclosure is being madepursuant to the Care Everywhere program and may not contain all information available regarding this patient. Last updated 18.[facility] Allergies Active Allergy Reactions Criticality Noted Date Comments Ibuprofen Rash Medium 10/23/2017 Contrast-Iodinated Agents For Ct/Other Other High Metformin Diarrhea Low 12/08/2017 Medications * Be aware that medications may not be up to date on this document. Alwaysverify current medications with the patient. docusate sodium (COLACE) 100 MG capsule Take 1 capsule by mouth 2 times daily 30 capsule 1 8 Active insulin glargine (LANTUS) pen Inject 80 Units subcutaneously at bedtime 8 Active atorvastatin (LIPITOR) 10 MG tablet 10 mg 6 Active dulaglutide (TRULICITY) 1.5 MG/0.5ML injection Inject 1.5 mg subcutaneously 7 Active empagliflozin (JARDIANCE) 10 MG tablet 10 mg 5 Active insulin NPH (HUMULIN N; NOVOLIN N) vial Inject 50 units bid 7 Active HYDROcodone-ac etaminophen (NORCO) 5-325 MG tablet Take 1 tablet by mouth 2 times daily as needed for Pain 60 tablet 8 Active oxyCODONE-acet aminophen (PERCOCET) 5-325 MG tablet Take 1 tablet by mouth every 8 hours as needed for Pain 60 tablet 8 Active amLODIPine (NORVASC) 10 MG tablet 0 8 Active aspirin (ASPIRIN) 81 MG chew tablet Take 81 mg by mouth Active Active Problems Problem Noted Date Diagnosed Date Obesity 10/26/2017 Uncontrolled diabetes mellitus type 2 without co mplications 10/26/2017 Vitamin D deficiency 10/26/2017 Closed fracture of left forearm 10/23/2017 Closed Galeazzi's fracture of left radius Immunizations Immunization Administration Dates Next Due TDAP (7yrs+) 10/23/2017 Social History Tobacco Use Types Packs/Day Years Used Date Smoking Tobacco: Never Smokeless Tobacco: Never Alcohol Use Standard Drinks/Week Comments No 0 (1 standard drink = 0.6 oz pur e alcohol) Sex and Gender Information Value Date Recorded Sex Assigned at Not on file Legal Sex Male 6:18 AM FLUX PLANT OPERATOR Gender Identity Not on file Sexual Orientation Not on file Last Filed Vital Signs Vital Sign Reading Time Taken Comments Blood Pressure 140/87 10/26/2017 11:35 AM CDT Pulse 92 10/26/2017 11:35 AM CDT Temperature 37 C (98.6 F) 10/26/2017 11:35 AM CDT Respiratory Rate 18 10/26/2017 11:35 AM CDT Oxygen Saturation 99% 10/26/2017 11:35 AM CDT Inhaled Oxygen Concentration - - Weight 156 kg (344 lb) 04/28/2018 4:50 PM FLUX PLANT OPERATOR Height 170.2 cm (5' 7) 04/28/2018 4:50 PM FLUX PLANT OPERATOR Body Mass Index 53.88 04/28/2018 4:50 PM FLUX PLANT OPERATOR Plan of Treatment Health Maintenance Due Date Last Done Comments COLOGUARD (AGES 45-75) - COLON CA SCREENING 1976 COLON MONITORING 1976 COLONOSCOPY - COLON CA SCREENING 1976 CT COLONOGRAPHY - COLON CA SCREENING 1976 Colorectal Cancer Screening 1976 FIT - COLON CA SCREENING 1976 FLEX SIG - COLON CA SCREENING 1976 Opioid Medication Agreement - Annual 1976 HIV SCREENING 1991 HEPATITIS C SCREENING 03/29/1994 HEPATITIS B VACCINE (1 of 3 - 19+ 3-dose series) 1995 DIABETES-FOOT EXAM WITH MONOFILAMENT 10/11/2018 DIABETES-SERUM CREATININE 10/26/20182017, 10/24/2017, 10/23/2017 DIABETES-HGB A1C 02/12/2019 11/12/2018, , 12/12/2017, Additional history exists COVID-19 VACCINE ( season) 2024 DEPRESSION SCREENING 06/22/2024 DIABETES - URINE PROTEIN SCREENING 06/22/2024 INFLUENZA VACCINE (#1) 2025 ZOSTER VACCINE (1 of 2) 2026 DTAP/TDAP/TD VACCINES (2 - Td or Tdap) 10/24/2027 10/23/2017 HIB VACCINE Aged Out No longer eligi ble based on patient's age to complete this topic HPV VACCINE Aged Out No longer eligi ble based on patient's age to complete this topic MENINGOCOCCAL (Group B) VACCINE SHARED DECISION-MAKING Aged Out No longer eligible based on patient's age to complete this topic MENINGOCOCCAL GROUPS A/C/Y/W VACCINE Aged Out No longer eligible based on patient's age to complete this topic PNEUMOCOCCAL VACCINE Aged Out No long er eligible based on patient's age to complete this topic Medical Devices Implanted Type Area Electric Motor Repair Supervisor Device Identifier Shelf Expiration Date Model / Serial / Lot 2.4 Mm Cortex Screws Self Tapping 16mm Implanted:Qty: 1 on 10/24/2017 by Tracy Whelan MD at [facility] Left: Radius Synthes Trauma 201.646 / / 2.4 Mm Cortex Screws Self Tapping 18mm Implanted:Qty: 2 on 10/24/2017 by Tracy Whelan MD at [facility] Left: Radius Synthes Trauma 201.648 / / Screw Bn 2.7mm 16mm Lc Dcp Ss [address] St Ns Implanted:Qty: 1 on 10/24/2017 by Tracy Whelan MD at [facility] Left: Radius Synthes Usa 204.816 / / Plate [id number] 14 Hl Lmt Cntct Tpr Implanted:Qty: 1 on 10/24/2017 by Tracy Whelan MD at [facility] Left: Radius Synthes Usa 223.641 / / Graft Bone Ac Cnxs Ntr Dbm 5cc Ptty Syr - [id number] Implanted:Qty: 1 on 10/24/2017 by Tracy Whelan MD at [facility] Left: Radius [employer] 02/16/2018 [id number] 0 / [id number] / [id number] Screw 35mm 18mm Implanted:Qty: 1 on 10/24/2017 by Tracy Whelan MD at [facility] Left: Radius Synthes Usa 204.818 / / Screw 35mm 20mm Implanted:Qty: 1 on 10/24/2017 by Tracy Whelan MD at [facility] Left: Radius 204.820 / / Screw Bn 3.5mm 22mm Lcp Ss [address] Ns Sm Implanted:Qty: 1 on 10/24/2017 by Tracy Whelan MD at [facility] Left: Radius [employer]ynthes Usa 204.822 / / Explanted Type Area Electric Motor Repair Supervisor Device Identifier Shelf Expiration Date Model / Serial / Lot Burley Tefl 6 X 6 Full Sht Explanted:Qty: 1 on 10/24/2017 by Tracy Whelan MD at [facility] Left: Wrist Bard Peripheral Vascular 08/19/2022 [id number] / / [id number] Procedures Procedure Name Priority Date/Time Associated Diagnosis Comments BASIC METABOLIC PANEL (CALCIUM TOTAL) STAT 10/26/2017 5:59 AM CDT HEMOGLOBIN A1C Routine 10/25/2017 5:28 AM CDT from Last 3 Months or Most Recently Relevant to Health Maintenance Results * (ABNORMAL) BASIC METABOLIC PANEL (CALCIUM TOTAL) (10/26/2017 5:59 AM CDT) BUN 7 7 - 26 mg/dL 10/26/2017 7:26 AM CDT [facility] Creatinine 0.8 0.6 - 1.2 mg/dL 10/26/2017 7:26 AM CDT [facility] Sodium 135(L) 136 - 145 mmol/L 10/26/2017 7:26 AM [facility] Potassium 3.6 3.5 - 4.5 mmol/L 10/26/2017 7:26 AM [facility] Chloride 98 98 - 107 mmol/L 10/26/2017 7:26 AM [facility] CO2 23 22 - 29 mmol/L 10/26/2017 7:26 AM [facility] Glucose 255(H) 70 - 115 mg/dL 10/26/2017 7:26 AM [facility] Calcium 8.9 8.4 - 10.2 mg/dL 10/26/2017 7:26 AM [facility] Anion Gap 18 8 - 18 10/26/2017 7:26 AM [facility] BUN/Creatinine Ratio 9 7 - 23 10/26/2017 7:26 AM [facility] Osmolality Calculated 287 270 - 300 mOsm/kg 10/26/2017 7:26 AM [facility] eGFR >60 >60 mL/min/1.7 3 m2 10/26/2017 7:26 AM [facility] Blood BLOOD SPECIMEN / Unknown Venipuncture / Unknown 10/26/2017 5:59 AM CDT 10/26/2017 6:52 AM [facility] Mark Goncalves MD LAB - CHEMISTRY ORDERABLES Final Result [facility] [address] [place] [address] * (ABNORMAL) HEMOGLOBIN A1C (10/25/2017 5:28 AM T) Hemoglobin A1c 12.3(H) 4.4 - 6.3 % 10/25/2017 8:23 AM [facility] Estimated Average Glucose 306 mg/dL 10/25/2017 8:23 AM [facility] Comment: HbA1c Interpretation: Treatment target values recommended by ADA and other clinical organizations should be used to evaluate metabolic control in patients. Treatment Target Values: Normal : < 5.7% Pre-diabetes: 5.7-6.4% Diabetes: Equal to or greater than 6.5% Reference: [place] Diabetes Association Standards of Care in Diabetes -2014 In patients 70 years and older consider HbA1c target range of 7.0-7.5% Reference: Diabetes Mellitus in Older People: Position Statement on behalf of the International Association of Gerontology and Geriatrics (IAGG), the Diabetes Working Republican for Older People (EDWPOP), and the International Task Force of Experts in Diabetes. Moe Grimm et al. J [place] Medical Directors Association. 2012 Test results diagnostic of diabetes should be repeated for confirmation. The Tosoh G8 assay for the measurement of HbA1c is a National Glycohemoglobin Standardization Program (NGSP)certified method. Results for patients with HbE disease should be interpreted with caution as this hemoglobinopathy has been shown to interfere with the Tosoh G8 assay. Whole Blood BLOOD SPECIMEN WITH EDTA / Unknown Lab Venipuncture / Unknown 10/25/2017 5:28 AM CDT 10/25/2017 5:59 AM CDT Tiffany Watson MD LAB - CHEMISTRY ORDERABLES Fi nal Result [address] [phone] from Last 3 Months or Most Recently Relevant to Health Maintenance Insurance [employer]YOR GENERIC Advance Directives * Full Code (Latest Code Status on File) Date Activated Date Inactivated Comments 10/24/2017 1:55 PM 10/26/2017 6:13 PM * Full Code Date Activated Date Inactivated Comments 10/23/2017 11:22 PM 10/24/2017 1:55 PM Care Teams Veterinary Medical Officer Relationship Specialty Start Date End Date Unknown, Provider PCP - General 11/04/17
--- OUTSIDE RECORDS SUMMARY | 2025-01-02 07:37 | XMS_ITS | Encounter Summary ---
Author Organization [facility] Address [address] [place] [address] Phone Care Team Providers Care Payment Collector Name Role Phone Ori Santiago MD Primary Care Provider [phone] Trace Meza MD Unavailable Ld Crowley MD Unavailable [phone] Provider, None Primary Care Provider Unavailabl e Reason for Visit * Reason Comments Medication Refill Encounter Details Date Type Department Care Team (Late st Contact Info) Description 03/16/2023 Refill [facility] - Endocrinology [facility] [address]2 [place] [address] Trace Meza MD #[address] [address] Medication Refill Social History Tobacco Use Types Packs/Day Years Used Date Smoking Tobacco: Never Smokeless Tobacco: Never Alcohol Use Standard Drinks/Week Comments No 0 (1 standard drink = 0.6 oz pur e alcohol) Sexually Active Control Partners Comments Yes Female Sex and Gender Information Value Date Recorded Sex Assigned at Male 06/17/2024 6:48 AM CONSTRUCTION CONTRACTOR Legal Sex Male 11:35 PM CDT Gender Identity Male 06/17/2024 6:48 AM CONSTRUCTION CONTRACTOR Sexual Orientation Not on file COVID-19 Exposure Response Date Recorded In the last 10 days, have yo u been in contact with someone who was confirmed or suspected to have Coronavirus/COVID-19? No / Unsure 03/19/2023 8:18 AM CDT documented as of this encounter Miscellaneous Notes * Telephone Encounter - Lisa Lennon, RN - 03/16/2023 9:52 AM CDT Requested Prescriptions Pending Prescriptions Disp Refills ??? gabapentin (NEURONTIN) 100 MG Capsule [Pharmacy Med Name: GABAPENTIN 100 MG CAPSULE] 180 Capsule 0 Sig: TAKE 1 CAPSULE BY MOUTH TWICE A DAY Next appt: 03/19/2023 documented in this encounter Plan of Treatment Upcoming Encounters Date Type Department Care Team (Late st Contact Info) Description 01/11/2025 9:30 AM CDT Office Visit [facility] - Endocrinology - [place] #2 [place] [address] Trace Meza MD #[address] [place] [phone] 03/22/2025 9:00 AM CDT Office Visit [facility] Endocrinology - [place] #2 [place] [address] Trace Meza MD #[address] [address] documented as of this encounter Visit Diagnoses Not on filedocumented in this encounter Care Teams Payment Collector Relationship Specialty Start Date End Date Ori Santiago MD [address] [place] [address] [facility] [address] [place], [place] [phone] PCP - General Primary Care 06/19/22 06/16/24 Provider, None [place] PCP - General 06/17/24 Trace Meza MD #[address] [place] [address] Consulting Physician Endocrinology 04/06/23 Ld Crowley MD #2 [facility], [facility] [address] [place] [address] Consulting Physician Urology 09/21/23 documented as of this encounter
--- OUTSIDE RECORDS SUMMARY | 2025-01-02 07:37 | XMS_ITS | Encounter Summary ---
Author Organization [facility] Address [address] [place] [address] Phone Care Team Providers Care Manager Of Compensation Name Role Phone Ori Santiago MD Primary Care Provider [phone] Trace Meza MD Unavailable Ld Crowley MD Unavailable [phone] Provider, None Primary Care Provider Unavailabl e Reason for Visit * Reason Comments Medication Refill Encounter Details Date Type Department Care Team (Late st Contact Info) Description 08/19/2023 Refill [facility] - Endocrinology - [place] #2 [place] [address] Trace Meza MD #[address] [address] Medication Refill Social History Tobacco Use Types Packs/Day Years Used Date Smoking Tobacco: Never Smokeless Tobacco: Never Alcohol Use Standard Drinks/Week Comments No 0 (1 standard drink = 0.6 oz pur e alcohol) Sexually Active Control Partners Comments Yes Female Sex and Gender Information Value Date Recorded Sex Assigned at Male 06/17/2024 6:48 AM POTTERY STRIPER Legal Sex Male 11:35 PM CDT Gender Identity Male 06/17/2024 6:48 AM POTTERY STRIPER Sexual Orientation Not on file documented as of this encounter Miscellaneous Notes * Telephone Encounter - Lisa Lennon, RN - 08/19/2023 3:34 PM POTTERY STRIPER Requested Prescriptions Pending Prescriptions Disp Refills Continuous Blood Gluc Sensor (Dexcom G6 Sensor) Misc [Pharmacy Med Name: DEXCOM G6 SENSOR] 5 Sig: USE 1 EACH BY DOES NOT APPLY ROUTE EVERY 10 DAYS. CHANGE SENSOR EVERY 10 DAYS. Next appt: 09/08/2023 ERY STRIPER * Telephone Encounter - Serena Tilley RMA - 08/19/2023 2:47 PM CST Patient also wanted to let you know that he stopped taking the victoza, it gave him bad anxiety along with pretty bad stomach pains ERY STRIPER documented in this encounter Plan of Treatment Upcoming Encounters Date Type Department Care Team (Late st Contact Info) Description 01/11/2025 9:30 AM CDT Office Visit [facility] Endocrinology - [place] #2 [place] [address] Trace Meza MD #[address] [address] 03/22/2025 9:00 AM CDT Office Visit [facility] Endocrinology [facility] #2 [place] [address] Trace Meza MD #[address] [address] documented as of this encounter Visit Diagnoses Not on filedocumented in this encounter Care Teams Manager Of Compensation Relationship Specialty Start Date End Date Ori Santiago MD [address] [place] [address] [facility] [address] [place] [address] PCP - General Primary Care 06/19/22 06/16/24 Provider, None [place] PCP - General 06/17/24 Trace Meza MD #2 [facility] [address] [place] [phone] Consulting Physician Endocrinology 04/06/23 Ld Crowley MD #[address] [facility] [address] [place] [address] Consulting Physician Urology 09/21/23 documented as of this encounter
[2025-01-02 07:45] VITALS: BP 181/99; PULSE 86; RESP 20; TEMP 36.6; O2SAT 98
[2025-01-02] MEDS: ASPIRIN 81 MG CHEWABLE TABLET 324 MG PO (07:57)
--- NOTE | 2025-01-02 07:58 | PC.NURSE ---
EDP Dr. Nolan aware of pt allergy to ibuprofen but wants the aspirin to be administered
[2025-01-02 08:01] VITALS: O2SAT 98
--- OUTSIDE RECORDS SUMMARY | 2025-01-02 08:02 | XMS_ITS | Clinical Summary ---
Author Organization [facility] Medical Office Building B Address [address] [place] [address] Care Team Providers Care Event Designer Name Role Phone Tabitha Aquino NP Primary [...] patient on diabetic diet - Agree with building maintenance mechanic consult. 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 Gender Identity Not on file Sexual Orientation [...] Completed 12/17/2017 Medical Devices Implanted Type Area Urologist Md Device Identifier Shelf Expiration Date Model / [...] MD LAB BLOOD ORDERABLES Julieta keith Result [facility] [place] [address] * (ABNORMAL) Hemoglobin A1c (02/01/2018 4:04 AM CDT) Hgb A1C 9.8(H) 4.0 - 5.6 % [facility] Estimated Average Glucose 235 mg/dL [facility] Comment: The ADA recommends reporting an estimated Average Glucose (eAG) with all Hemoglobin A1c results using the equation derived from a study of 507 normal and diabetic adults. Minority populations were underrepresented and children were not included. (Diabetes Care 31:6608-7290, 2008). The eAG is not equivalent to a fasting glucose. Blood specimen (specimen) 02/01/2018 4:04 AM CDT 02/01/2018 4:11 AM CDT Narrative [facility] - 02/01/2018 6:34 AM CDT THE [facility] COLLECTION LOCATION IS [facility] ED230 us George Manriquez MD LAB BLOOD ORDERABLES Fi nal Result [facility] [place] [address] * (ABNORMAL) Lipid panel (01/31/2018 11:38 PM CDT) Cholesterol 230(H) 30 - 200 mg/dL [facility] Comment: Interpretive Data Desirable: <200 mg/dL Borderline high: 200-239 mg/dL High: > or = 240 mg/dL Literature Reference: National Cholesterol Education Program (NCEP) Expert Panel on Detection, Evaluation, and Treatment of High Blood Cholesterol in Adults (Adult Treatment Panel III). Circulation 2004; 110:227. Current interpretive data was last revised on 2015. Triglycerides 239(H) 0 - 150 mg/dL [facility] Comment: Interpretive Data Desirable: < 150 mg/dL Borderline High: 150 - 199 mg/dL High: 200 - 499 mg/dL Very High: > or = 499 mg/dL Literature Reference: See Cholesterol Current interpretive data was last revised on 2015. HDL 41 >=40 mg/dL [facility] Comment: Interpretive Data Less than 40 mg/dL - low; A major risk factor for heart disease. Greater than or equal to 60 mg/dL - High; considered protective of heart disease. Literature Reference: See Cholesterol Current interpretive data was last revised on 2015. LDL, calculated 141(H) 10 - 129 mg/dL [facility] Comment: Interpretive Data Optimal: < 100 mg/dL Near Optimal: 100 - 129 mg/dL Borderline High: 130 - 159 mg/dL High: 160 - 189 mg/dL Very high: > or = 190 mg/dL Literature Reference: See Cholesterol Current interpretive data was last revised on 2015. Non-HDL Cholesterol 189 mg/dL [facility] Comment: Interpretive Data When triglycerides are >200 mg/dL, non-HDL C is a secondary target of therapy, with a goal 30 mg/dL higher than the identified LDL-C goal. Reference: See Cholesterol Reference. Current interpretive data was last revised 2015. Blood specimen (specimen) 01/31/2018 11:38 PM CDT 01/31/2018 11:52 PM CDT Narrative [facility] - 02/01/2018 4:58 PM CDT us Elvira Sinclair MD LAB BLOOD ORDERABLES Final Result [facility] Department [place] [address] * Hepatitis panel, acute (12/17/2017 12:34 PM CDT) Hep A IgM Negative Negative [facility] ([facility]) Comment:Testing performed by : [address] [address] Hep B core IgM Negative Negative [facility] ([facility] Comment:Testing performed by : [address] [address] Hep C Ab Negative Negative [facility] ([facility]) Comment:Testing performed by : [address] [address] HepBsAg Negative Negative [facility] ([facility]) Comment:Testing performed by : [address] [address] Blood specimen (specimen) 12/17/2017 12:34 PM CDT 12/17/2017 3:13 PM CDT Narrative [facility] - 12/17/2017 4:11 PM CDT us Nabil Castorena MD LAB MICROBIOLOGY - GENERAL OR DERABLES Final Result [facility] [place]) 1 [facility] Department [place] [address] * DIABETES FOOT EXAM (12/08/2017) Diabetic Foot Exam Unknown Historical Provider MD HEALTH MAINTENANCE Final Result * DIABETES EYE EXAM (08/19/2016) Diabetic Eye Exam Unknown Historical Provider MD HEALTH MAINTENANCE Final Result from Last 3 Months or Most Recently Relevant to Health Maintenance Insurance AETNA BETTER [facility] AETNA BETTER [facility] [employer] Advance Directives For more information, please contact: [phone] * Full Code (Latest Code Status on File) Date Activated Date Inactivated Comments 02/01/2018 6:07 AM 02/02/2018 5:51 PM * Full Code Date Activated Date Inactivated Comments 12/12/2017 1:50 PM 12/23/2017 1:51 PM Care Teams Event Designer Relationship Specialty Start Date End Date Tabitha Aquino NP PCP - General 12/15/17
--- OUTSIDE RECORDS SUMMARY | 2025-01-02 08:02 | XMS_ITS | Encounter Summary ---
Author Organization [facility] Address [address] [place] [address] Phone Care Team Providers Care Petroleum Products District Supervisor Name Role Phone Provider, None Primary Care Provider Unavailabl e Ori Santiago MD Primary Care Provider Trace Meza MD Unavailable Ld Crowley MD Unavailable [phone] Provider, None Primary Care Provider Unavailabl e Reason for Visit * Reason Comments Medication Refill Encounter Details Date Type Department Care Team (Late st Contact Info) Description 12/01/2021 Refill [facility] - Endocrinology - [place] [address] [place] [address] Trace Meza MD [address] [address] Medication Refill Social History Tobacco Use Types Packs/Day Years Used Date Smoking Tobacco: Never Smokeless Tobacco: Never Alcohol Use Standard Drinks/Week Comments No 0 (1 standard drink = 0.6 oz pur e alcohol) Sexually Active Control Partners Comments Yes Female Sex and Gender Information Value Date Recorded Sex Assigned at Male 06/17/2024 6:48 AM NURSE CHARGE RN Legal Sex Male 11:35 PM CDT Gender Identity Male 06/17/2024 6:48 AM NURSE CHARGE RN Sexual Orientation Not on file documented as [...] Description 01/11/2025 9:30 AM CDT Office Visit [facility] - Endocrinology - [place] [address] [place] [address] Trace Meza MD #[address] [address] 03/22/2025 9:00 AM CDT Office Visit [facility] Endocrinology - [place] [address] [place] [address] Trace Meza MD #[address] [address] documented as of this encounter Visit Diagnoses Not on filedocumented in this encounter Care Teams Petroleum Products District Supervisor Relationship Specialty Start Date End Date Provider, None [place] PCP - General 03/28/21 06/18/22 Ori Santiago MD [address] [place] [address] [facility] [address] [place] [address] PCP - General Primary Care 06/19/22 06/16/24 Provider, None [place] PCP - General 06/17/24 Trace Meza MD #[address] [place] [address] Consulting Physician Endocrinology 04/06/23 Ld Crowley MD #[address] [address] [place] [address] Consulting Physician Urology 09/21/23 documented as of this encounter
--- OUTSIDE RECORDS SUMMARY | 2025-01-02 08:02 | XMS_ITS | Clinical Summary ---
Author Organization [facility] [employer] Address [address] [place] [address] Care Team Providers Care Industrial Relations Officer Name Role Phone Unknown, Provider Primary Care Provider Unavaila ble Source Comments [facility] [employer],non-owned Affiliates and Associated Physician Practices is amultiple site organization consisting of ambulatory clinics and hospital sitesin [place], [place], [place] and [place]. This disclosure is being madepursuant to the Care Everywhere program and may not contain all information available regarding this patient. Last updated 18.[facility] [employer] Allergies Active Allergy Reactions Criticality Noted Date [...] on file Legal Sex Male 6:18 AM FAMILY ASSESSMENT WORKER Gender Identity Not on file Sexual Orientation [...] 156 kg (344 lb) 04/28/2018 4:50 PM FAMILY ASSESSMENT WORKER Height 170.2 cm (5' 7) 04/28/2018 4:50 PM FAMILY ASSESSMENT WORKER Body Mass Index 53.88 04/28/2018 4:50 PM FAMILY ASSESSMENT WORKER Plan of Treatment Health Maintenance Due Date [...] this topic Medical Devices Implanted Type Area Inspector Chief Device Identifier Shelf Expiration Date Model / Serial / Lot 2.4 Mm Cortex Screws Self Tapping 16mm Implanted:Qty: 1 on 10/24/2017 by Tracy Whelan MD at [facility] Left: Radius Synthes Trauma 201.646 / / 2.4 Mm Cortex Screws Self Tapping 18mm Implanted:Qty: 2 on 10/24/2017 by Tracy Whelan MD at [facility] Left: Radius Synthes Trauma 201.648 / / Screw Bn 2.7mm 16mm Lc Dcp Ss Domenico St Ns Implanted:Qty: 1 on 10/24/2017 by Tracy Whelan MD at [facility] Left: Radius Synthes Usa 204.816 / / Plate [id number] 14 Hl Lmt Cntct Tpr Implanted:Qty: 1 on 10/24/2017 by Tracy Whelan MD at [facility] Left: Radius Synthes Usa 223.641 / / Graft Bone Ac Cnxs Ntr Dbm 5cc Ptty Syr - [id number] Implanted:Qty: 1 on 10/24/2017 by Tracy Whelan MD at [facility] Left: Radius [employer] 02/16/2018 02-3000-05 0 / [id number] / [id number] Screw 35mm 18mm Implanted:Qty: 1 on 10/24/2017 by Tracy Whelan MD at [facility] Left: Radius Synthes Usa 204.818 / / Screw 35mm 20mm Implanted:Qty: 1 on 10/24/2017 by Tracy Whelan MD at [facility] Left: Radius 204.820 / / Screw Bn 3.5mm 22mm Lcp Ss Domenico St Ns Sm Implanted:Qty: 1 on 10/24/2017 by Tracy Whelan MD at [facility] Left: Radius Synthes Usa 204.822 / / Explanted Type Area Inspector Chief Device Identifier Shelf Expiration Date Model / Serial / Lot Dewitt Tefl 6 X 6 Full Sht Explanted:Qty: 1 on 10/24/2017 by Tracy Whelan MD at [facility] Left: Wrist Bard Peripheral Vascular 08/19/2022 [id number] / / [id number] Procedures Procedure Name Priority Date/Time Associated Diagnosis Comments BASIC METABOLIC PANEL (CALCIUM TOTAL) STAT 10/26/2017 5:59 AM CDT HEMOGLOBIN A1C Routine 10/25/2017 5:28 AM CDT from Last 3 Months or Most Recently Relevant to Health Maintenance Results * (ABNORMAL) BASIC METABOLIC PANEL (CALCIUM TOTAL) (10/26/2017 5:59 AM CDT) BUN 7 7 - 26 mg/dL 10/26/2017 7:26 AM CDT [facility] Creatinine 0.8 0.6 - 1.2 mg/dL 10/26/2017 7:26 AM CDT [facility] Sodium 135(L) 136 - 145 mmol/L 10/26/2017 7:26 AM [facility] Potassium 3.6 3.5 - 4.5 mmol/L 10/26/2017 7:26 AM [facility] Chloride 98 98 - 107 mmol/L 10/26/2017 7:26 AM [facility] CO2 23 22 - 29 mmol/L 10/26/2017 7:26 AM [facility] Glucose 255(H) 70 - 115 mg/dL 10/26/2017 7:26 AM [facility] Calcium 8.9 8.4 - 10.2 mg/dL 10/26/2017 7:26 AM [facility] Anion Gap 18 8 - 18 10/26/2017 7:26 AM [facility] BUN/Creatinine Ratio 9 7 - 23 10/26/2017 7:26 AM [facility] Osmolality Calculated 287 270 - 300 mOsm/kg 10/26/2017 7:26 AM [facility] eGFR >60 >60 mL/min/1.7 3 m2 10/26/2017 7:26 AM [facility] Blood BLOOD SPECIMEN / Unknown Venipuncture / Unknown 10/26/2017 5:59 AM CDT 10/26/2017 6:52 AM [facility] Mark Goncalves MD LAB - CHEMISTRY ORDERABLES Final Result [facility] [address] [place] [address] * (ABNORMAL) HEMOGLOBIN A1C (10/25/2017 5:28 AM T) Hemoglobin A1c 12.3(H) 4.4 - 6.3 % 10/25/2017 8:23 AM [facility] Estimated Average Glucose 306 mg/dL 10/25/2017 8:23 AM [facility] Comment: HbA1c Interpretation: Treatment target values recommended by ADA and other clinical organizations should be used to evaluate metabolic control in patients. Treatment Target Values: Normal : < 5.7% Pre-diabetes: 5.7-6.4% Diabetes: Equal to or greater than 6.5% Reference: [place] Diabetes Association Standards of Care in Diabetes -2014 In patients 70 years and older consider HbA1c target range of 7.0-7.5% Reference: Diabetes Mellitus in Older People: Position Statement on behalf of the International Association of Gerontology and Geriatrics (IAGG), the Diabetes Working Libertarian for Older People (EDWPOP), and the International Task Force of Experts in Diabetes. Moe Grimm et al. J [place] Medical Directors Association. 2012 Test results diagnostic [...] LAB - CHEMISTRY ORDERABLES Fi nal Result [address] [phone] from Last 3 Months or Most Recently Relevant to Health Maintenance Insurance [employer] Advance Directives * Full Code (Latest Code Status on File) Date Activated Date Inactivated Comments 10/24/2017 1:55 PM 10/26/2017 6:13 PM * Full Code Date Activated Date Inactivated Comments 10/23/2017 11:22 PM 10/24/2017 1:55 PM Care Teams Industrial Relations Officer Relationship Specialty Start Date End Date Unknown, Provider PCP - General 11/04/17
--- OUTSIDE RECORDS SUMMARY | 2025-01-02 08:02 | XMS_ITS | Encounter Summary ---
Author Organization [facility] Address [address] [place] [address] Phone Care Team Providers Care Elementary Teacher Name Role Phone Ori Santiago MD Primary Care Provider [phone] Trace Meza MD Unavailable Ld Crowley MD Unavailable [phone] Provider, None Primary Care Provider Unavailabl e Reason for Visit * Reason Comments Medication Refill Encounter Details Date Type Department Care Team (Late st Contact Info) Description 08/19/2023 Refill [facility] - Endocrinology - [place] [address] [place] [address] Trace Meza MD #[address] [address] Medication Refill Social History Tobacco Use Types Packs/Day Years Used Date Smoking Tobacco: Never Smokeless Tobacco: Never Alcohol Use Standard Drinks/Week Comments No 0 (1 standard drink = 0.6 oz pur e alcohol) Sexually Active Control Partners Comments Yes Female Sex and Gender Information Value Date Recorded Sex Assigned at Male 06/17/2024 6:48 AM HACKSAW INSPECTOR Legal Sex Male 11:35 PM CDT Gender Identity Male 06/17/2024 6:48 AM HACKSAW INSPECTOR Sexual Orientation Not on file documented as of this encounter Miscellaneous Notes * Telephone Encounter - Lisa Lennon, RN - 08/19/2023 3:34 PM HACKSAW INSPECTOR Requested Prescriptions Pending Prescriptions Disp Refills Continuous Blood Gluc Sensor (Dexcom G6 Sensor) Misc [Pharmacy Med Name: DEXCOM G6 SENSOR] 5 Sig: USE 1 EACH BY DOES NOT APPLY ROUTE EVERY 10 DAYS. CHANGE SENSOR EVERY 10 DAYS. Next appt: 09/08/2023 SAW INSPECTOR * Telephone Encounter - Serena Tilley RMA - 08/19/2023 2:47 PM CST Patient also wanted to let you know that he stopped taking the victoza, it gave him bad anxiety along with pretty bad stomach pains SAW INSPECTOR documented in this encounter Plan of Treatment Upcoming Encounters Date Type Department Care Team (Late st Contact Info) Description 01/11/2025 9:30 AM CDT Office Visit [facility] Endocrinology - [place] [address] [place] [address] Trace Meza MD #[address] [address] 03/22/2025 9:00 AM CDT Office Visit [facility] Endocrinology [facility] [address] [place] [address] Trace Meza MD #[address] [address] documented as of this encounter Visit Diagnoses Not on filedocumented in this encounter Care Teams Elementary Teacher Relationship Specialty Start Date End Date Ori Santiago MD [address] [place] [address] [facility] [address] [place] [address] PCP - General Primary Care 06/19/22 06/16/24 Provider, None [place] PCP - General 06/17/24 Trace Meza MD #2 [facility] [address] [place] [address] Consulting Physician Endocrinology 04/06/23 Ld Crowley MD #2 [facility] [address] [place] [address] Consulting Physician Urology 09/21/23 documented as of this encounter
--- OUTSIDE RECORDS SUMMARY | 2025-01-02 08:02 | XMS_ITS | Clinical Summary ---
Author Organization [facility] Address [address] [place] [address] Phone Care Team Providers Care Industrial Sociologist Name Role Phone Trace Meza MD Unavailable Ld Crowley MD Unavailable [phone] Provider, None Primary Care Provider Unavailabl e [...] naloxone HCl (Narcan) 4 MG/0.1ML Liquid 1 Fortine by Nasal route as needed for Opioid [...] not taking.Reported on 12/19/2024 Continuous Glucose Senior Automation Engineer (Dexcom G7 Senior Automation Engineer) Device Use to check blood glucose 4x [...] Office Visit [facility] - Endocrinology [facility] [address]2 [place] [address] Trace Meza MD Type 2 diabetes mellitus with hyperglycemia, with long-term current use of insulin (HCC) (Primary Dx); Class 3 severe obesity due to excess calories with serious comorbidity and body mass index (BMI) of 40.0 to 44.9 in adult; Insulin dose changed (HCC); Medication side effect; Hypoglycemia Discharge Disposition: Discharged to home or Selfcare 12/19/2024 Travel 12/16/2024 [facility]ill [facility] [place] [address] Trace Meza MD Medication Refill 11/18/2024 [facility]ill [facility] [place] [address] Trace Meza MD Medication Refill from Last [...] drink = 0.6 oz pur e alcohol) [facility] Utilities Answer Date Recorded In the past 12 months has e [employer], [employer], oil, or water [employer] threatened to shut off services in your [...] Sex Assigned at Male 06/17/2024 6:48 AM HARDNESS TESTER Legal Sex Male 11:35 PM CDT Gender Identity Male 06/17/2024 6:48 AM HARDNESS TESTER Sexual Orientation Not on file Last Filed [...] 170.2 cm (5' 7) 06/17/2024 6:28 AM HARDNESS TESTER Body Mass Index 42.16 06/17/2024 6:28 AM HARDNESS TESTER Plan of Treatment Upcoming Encounters Date Type Department Care Team (Late st Contact Info) Description 01/11/2025 9:30 AM CDT Office Visit [facility] - Endocrinology - [place] [address] [place] [phone] Trace Meza MD [address] [address] [place] [address] 03/22/2025 9:00 AM CDT Office Visit [facility] - Endocrinology [place] [address] [place] [address] Trace Meza MD [address] [address] Health Maintenance Due Date Last [...] this topic Medical Devices Implanted Type Area Direct Sales Professional Device Identifier Shelf Expiration Date Model / Serial / Lot Mesh Srg Ventralight St Sepra Echo Ps 9x7in Mfl Ltwt Abs Loprfl Strl Seprafilm Polyp Hydrogel - [id number] Implanted:Qty: 1 on 07/03/2018 by Mehran Del Cid MD at [facility] IMPLANT N/A: Abdomen [employer] 03/19/2020 [id number] / [id number] / [id number] Procedures Procedure Name Priority Date/Time Associated Diagnosis Comments POCT GLYCOSYLATED HEMOGLOBIN Routine 12/19/2024 8:47 AM CDT Type 2 diabetes mellitus with hyperglycemia, with long-term current use of insulin (HCC) CMP (COMPREHENSIVE METABOLIC PANEL) STAT 06/17/2024 6:43 AM HARDNESS TESTER from Last 3 Months or Most Recently Relevant to Health Maintenance Results * (ABNORMAL) POCT GLYCOSYLATED HEMOGLOBIN (12/19/2024 8:47 AM CDT) HGB-A1C 12.4(A) 4 - 6 % Blood 12/19/2024 8:47 AM CDT us Trace Meza MD POINT OF CARE TESTING (MANUAL) F inal Result * (ABNORMAL) Comprehensive Metabolic Panel (Cmp) [id number] (06/17/2024 6:43 AM HARDNESS TESTER) SODIUM 139 136 - 145 mmol/L 06/17/2024 7:11 AM HARDNESS TESTER [facility] POTASSIUM 3.9 3.5 - 5.1 mmol/L 06/17/2024 7:11 AM HARDNESS TESTER [facility] CHLORIDE 110(H) 98 - 107 mmol/L 06/17/2024 7:11 AM HARDNESS TESTER [facility] CO2, VENOUS 21(L) 22 - 30 mmol/L 06/17/2024 7:11 AM HARDNESS TESTER [facility] ANION GAP 11.9 <18.0 mmol/L 06/17/2024 7:11 AM HARDNESS TESTER [facility] GLUCOSE 164(H) 70 - 99 mg/dL 06/17/2024 7:11 AM HARDNESS TESTER [facility] BUN 15 9 - 21 mg/dL 06/17/2024 7:11 AM [facility] CREATININE, BLOOD 1.09 0.70 - 1.30 mg/dL 06/17/2024 7:11 AM HARDNESS TESTER [facility] BUN/CREATININE RATIO 14 12 - 20 [...] Blood Venipuncture / Unknown 06/17/2024 6:43 AM HARDNESS TESTER 06/17/2024 6:48 AM HARDNESS TESTER Jono Bhatti MD CHEMISTRY ORDERABLES Final Result [facility] [address] [place] [address] from Last 3 Months or Most Recently Relevant to Health Maintenance Insurance MEDICAID AETNA [facility] Advance Directives * Full Code (Latest Code [...] measures to stabilize the patient. Care Teams Industrial Sociologist Relationship Specialty Start Date End Date Provider, None [place] PCP - General 06/17/24 Trace Meza MD #2 [facility] [address] [place] [address] Consulting Physician Endocrinology 04/06/23 Ld Crowley MD #2 [facility] [address] [place] [address] Consulting Physician Urology 09/21/23
--- OUTSIDE RECORDS SUMMARY | 2025-01-02 08:02 | XMS_ITS | Referral Summary ---
Author Organization [facility] Medical Office Building B Address [address] [place] [address] Care Team Providers Care Business Job Titles Name Role Phone Tabitha Aquino NP Primary [...] patient on diabetic diet - Agree with natural resources extension educator consult. Please have patient meet with [...] on file Legal Sex Male 12:20 AM EMS DRIVER Gender Identity Not on file Sexual Orientation [...] on file Medical Devices Implanted Type Area Planning Management It Specialist Device Identifier Shelf Expiration Date Model [...] MD LAB BLOOD ORDERABLES Julieta keith Result [facility] One [facility] [place] [address] * (ABNORMAL) Hemoglobin A1c (02/01/2018 4:04 AM CDT) Hgb A1C 9.8(H) 4.0 - 5.6 % [facility] Estimated Average Glucose 235 mg/dL [facility] Comment: The ADA recommends reporting an estimated Average Glucose (eAG) with all Hemoglobin A1c results using the equation derived from a study of 507 normal and diabetic adults. Minority populations were underrepresented and children were not included. (Diabetes Care 31:6817-4648, 2008). The eAG is not equivalent to a fasting glucose. Blood specimen (specimen) 02/01/2018 4:04 AM CDT 02/01/2018 4:11 AM CDT Narrative [facility] - 02/01/2018 6:34 AM CDT THE COLLECTION LOCATION IS [place] [address] us George Manriquez MD LAB BLOOD ORDERABLES nal Result [facility] One [facility] [place] [address] * (ABNORMAL) Lipid panel (01/31/2018 11:38 PM CDT) Cholesterol 230(H) 30 - 200 mg/dL [facility] Comment: Interpretive Data Desirable: <200 mg/dL Borderline high: 200-239 mg/dL High: > or = 240 mg/dL Literature Reference: National Cholesterol Education Program (NCEP) Expert Panel on Detection, Evaluation, and Treatment of High Blood Cholesterol in Adults (Adult Treatment Panel III). Circulation 2004; 110:227. Current interpretive data was last revised on 2015. Triglycerides 239(H) 0 - 150 mg/dL [facility] Comment: Interpretive Data Desirable: < 150 mg/dL Borderline High: 150 - 199 mg/dL High: 200 - 499 mg/dL Very High: > or = 499 mg/dL Literature Reference: See Cholesterol Current interpretive data was last revised on 2015. HDL 41 >=40 mg/dL [facility] Comment: Interpretive Data Less than 40 mg/dL - low; A major risk factor for heart disease. Greater than or equal to 60 mg/dL - High; considered protective of heart disease. Literature Reference: See Cholesterol Current interpretive data was last revised on 2015. LDL, calculated 141(H) 10 - 129 mg/dL [facility] Comment: Interpretive Data Optimal: < 100 mg/dL Near Optimal: 100 - 129 mg/dL Borderline High: 130 - 159 mg/dL High: 160 - 189 mg/dL Very high: > or = 190 mg/dL Literature Reference: See Cholesterol Current interpretive data was last revised on 2015. Non-HDL Cholesterol 189 mg/dL [facility] Comment: Interpretive Data When triglycerides are >200 mg/dL, non-HDL C is a secondary target of therapy, with a goal 30 mg/dL higher than the identified LDL-C goal. Reference: See Cholesterol Reference. Current interpretive data was last revised 2015. Blood specimen (specimen) 01/31/2018 11:38 PM CDT 01/31/2018 11:52 PM CDT Narrative [facility] - 02/01/2018 4:58 PM CDT us Elvira Sinclair MD LAB BLOOD ORDERABLES Final Result [facility] One [facility] [place] [address] * Hepatitis panel, acute (12/17/2017 12:34 PM CDT) Hep A IgM Negative Negative [facility] ([facility]) Comment:Testing performed by : [facility], [address] [place] [address], [place]., [address] Hep B core IgM Negative Negative [facility] ([facility]) Comment:Testing performed by : [facility], [address] [place] [address]., [address] Hep C Ab Negative Negative [facility] ([facility]) Comment:Testing performed by : [address] [address] HepBsAg Negative Negative [facility] ([facility]) Comment:Testing performed by : [facility], [address] [place] [address]., [address] Blood specimen (specimen) 12/17/2017 12:34 PM CDT 12/17/2017 3:13 PM CDT Narrative [facility] ([facility]) - 12/17/2017 4:11 PM CDT Nabil Castorena MD LAB MICROBIOLOGY - GENERAL OR DERABLES Final Result [facility] ([place]) 1 [facility] Department [place] [address] * DIABETES FOOT EXAM (12/08/2017) Diabetic Foot Exam Unknown Historical Provider HEALTH MAINTENANCE Final Result * DIABETES EYE EXAM (08/19/2016) Diabetic Eye Exam Unknown Historical Provider HEALTH MAINTENANCE Final Result from Last 3 Months or Most Recently Relevant to Health Maintenance Insurance [facility] Advance Directives For more information, please contact: [phone] * Full Code (Latest Code Status on File) Date Activated Date Inactivated Comments 02/01/2018 6:07 AM 02/02/2018 5:51 PM * Full Code Date Activated Date Inactivated Comments 12/12/2017 1:50 PM 12/23/2017 1:51 PM Care Teams Business Job Titles Relationship Specialty Start Date End Date Tabitha Aquino NP PCP - General 12/15/17
--- OUTSIDE RECORDS SUMMARY | 2025-01-02 08:02 | XMS_ITS | Encounter Summary ---
Author Organization [facility] Address [address] [place] [address] Phone Care Team Providers Care Numerical Control Drill Press Operator Name Role Phone Ori Santiago MD Primary Care Provider [phone] Trace Meza MD Unavailable Ld Crowley MD Unavailable [phone] Provider, None Primary Care Provider Unavailabl e Reason for Visit * Reason Comments Medication Refill Encounter Details Date Type Department Care Team (Late st Contact Info) Description 03/16/2023 Refill [facility] - Endocrinology [facility] [address] [place] [address] Trace Meza MD [address] [address] Medication Refill Social History Tobacco Use Types Packs/Day Years Used Date Smoking Tobacco: Never Smokeless Tobacco: Never Alcohol Use Standard Drinks/Week Comments No 0 (1 standard drink = 0.6 oz pur e alcohol) Sexually Active Control Partners Comments Yes Female Sex and Gender Information Value Date Recorded Sex Assigned at Male 06/17/2024 6:48 AM CHURCH ORGANIST Legal Sex Male 11:35 PM CDT Gender Identity Male 06/17/2024 6:48 AM CHURCH ORGANIST Sexual Orientation Not on file COVID-19 Exposure [...] Description 01/11/2025 9:30 AM CDT Office Visit [facility] - Endocrinology - [place] [address] [place] [phone] Trace Meza MD #[address] [place] [phone] 03/22/2025 9:00 AM CDT Office Visit [facility] Endocrinology - [place] [address]2 [facility] [place] [address] Trace Meza MD #[address] [address] documented as of this encounter Visit Diagnoses Not on filedocumented in this encounter Care Teams Numerical Control Drill Press Operator Relationship Specialty Start Date End Date Ori Santiago MD [address] [place] [address] [facility] [address] [place], [place] [id number] PCP - General Primary Care 06/19/22 06/16/24 Provider, None [place] PCP - General 06/17/24 Trace Meza MD [address] [place] [address] Consulting Physician Endocrinology 04/06/23 Ld Crowley MD [address] [place], [facility] [address] [place] [address] Consulting Physician Urology 09/21/23 documented as of this encounter
--- OUTSIDE RECORDS SUMMARY | 2025-01-02 08:02 | XMS_ITS | Encounter Summary ---
Author Organization [facility] Address [address] [place] [address] Phone Care Team Providers Care Crusher Wet Ground Mica Name Role Phone Ori Santiago MD Primary Care Provider [phone] Trace Meza MD Unavailable Ld Crowley MD Unavailable [phone] Provider, None Primary Care Provider Unavailabl e Reason for Visit * Reason Comments Medication Refill Encounter Details Date Type Department Care Team (Late st Contact Info) Description 01/13/2023 Refill [facility] - [facility]ocr[facility]ology - [place] [address] [place] [address] Trace Meza MD #[address] [address] Medication Refill Social History Tobacco Use Types Packs/Day Years Used Date Smoking Tobacco: Never Smokeless Tobacco: Never Alcohol Use Standard Drinks/Week Comments No 0 (1 standard drink = 0.6 oz pur e alcohol) Sexually Active Control Partners Comments Yes Female Sex and Gender Information Value Date Recorded Sex Assigned at Male 06/17/2024 6:48 AM CIRCUS ROUSTABOUT Legal Sex Male 11:35 PM CDT Gender Identity Male 06/17/2024 6:48 AM CIRCUS ROUSTABOUT Sexual Orientation Not on file documented as [...] Description 01/11/2025 9:30 AM CDT Office Visit [facility] Endocrinology [facility] [address] [place] [phone] Trace Meza MD #[address] [phone] 03/22/2025 9:00 AM CDT Office Visit [facility] Endocrinology - [place] [address] [place] [phone] Trace Meza MD #[address] [phone] documented as of this encounter Visit Diagnoses Not on filedocumented in this encounter Care Teams Crusher Wet Ground Mica Relationship Specialty Start Date End Date Ori Santiago MD [address] [place] [address] [facility] [address] [place] [address] PCP - General Primary Care 06/19/22 06/16/24 Provider, None [place] PCP - General 06/17/24 Trace Meza MD #[address] [phone] Consulting Physician Endocrinology 04/06/23 Ld Crowley MD #[address] [facility] [address] [place] [address] Consulting Physician Urology 09/21/23 documented as of this encounter
--- OUTSIDE RECORDS SUMMARY | 2025-01-02 08:02 | XMS_ITS | Encounter Summary ---
Author Organization [facility] Address [address] [place] [address] Phone Care Team Providers Care Staff Occupational Therapist Name Role Phone Ori Santiago MD Primary Care Provider [phone] Trace Meza MD Unavailable Ld Crowley MD Unavailable [phone] Provider, None Primary Care Provider Unavailabl e Reason for Visit * Reason Comments Medication Refill Encounter Details Date Type Department Care Team (Late st Contact Info) Description 12/16/2022 Refill [facility] - [facility]ocr[facility]ology - [place] [address] [place] [address] Trace Meza MD #[address] [address] Medication Refill Social History Tobacco Use Types Packs/Day Years Used Date Smoking Tobacco: Never Smokeless Tobacco: Never Alcohol Use Standard Drinks/Week Comments No 0 (1 standard drink = 0.6 oz pur e alcohol) Sexually Active Control Partners Comments Yes Female Sex and Gender Information Value Date Recorded Sex Assigned at Male 06/17/2024 6:48 AM BUNDLE PACKER Legal Sex Male 11:35 PM CDT Gender Identity Male 06/17/2024 6:48 AM BUNDLE PACKER Sexual Orientation Not on file COVID-19 Exposure [...] Description 01/11/2025 9:30 AM CDT Office Visit [facility] - Endocrinology - [place] [address] [place] [address] Trace Meza MD #[address] [phone] 03/22/2025 9:00 AM CDT Office Visit [facility] Endocrinology - [place] [address] [place] [address] Trace Meza MD #[address] [phone] documented as of this encounter Visit Diagnoses Not on filedocumented in this encounter Care Teams Staff Occupational Therapist Relationship Specialty Start Date End Date Ori Santiago MD [address] [place] [address] [facility] [address] [place] [address] PCP - General Primary Care 06/19/22 06/16/24 Provider, None [place] PCP - General 06/17/24 Trace Meza MD #[address] [place] [address] Consulting Physician Endocrinology 04/06/23 Ld Crowley MD #[address] [facility] [facility] [address] [place] [address] Consulting Physician Urology 09/21/23 documented as of this encounter
--- OUTSIDE RECORDS SUMMARY | 2025-01-02 08:02 | XMS_ITS | Encounter Summary ---
Author Organization [facility] Address [address] [place] [address] Phone Care Team Providers Care Laboratory Tester Name Role Phone Ori Santiago MD Primary Care Provider [phone] Trace Meza MD Unavailable Ld Crowley MD Unavailable [phone] Provider, None Primary Care Provider Unavailabl e Reason for Visit * Reason Comments Medication Refill Encounter Details Date Type Department Care Team (Late st Contact Info) Description 02/12/2023 Refill [facility] - Endocrinology - [place] [address] [place] [address] Trace Meza MD #[address] [address] Medication Refill Social History Tobacco Use Types Packs/Day Years Used Date Smoking Tobacco: Never Smokeless Tobacco: Never Alcohol Use Standard Drinks/Week Comments No 0 (1 standard drink = 0.6 oz pur e alcohol) Sexually Active Control Partners Comments Yes Female Sex and Gender Information Value Date Recorded Sex Assigned at Male 06/17/2024 6:48 AM 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 Legal Sex Male 11:35 PM CDT Gender Identity Male 06/17/2024 6:48 AM 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 Sexual Orientation Not on file documented as [...] Description 01/11/2025 9:30 AM CDT Office Visit [facility] Endocrinology - [place] [address] [place] [phone] Trace Meza MD #[address] [phone] 03/22/2025 9:00 AM CDT Office Visit [facility] Endocrinology [facility] #2 [place] [phone] Trace Meza MD #[address] [phone] documented as of this encounter Visit Diagnoses Not on filedocumented in this encounter Care Teams Laboratory Tester Relationship Specialty Start Date End Date Ori Santiago MD [address] [place] [address] [address] [place] [address] PCP - General Primary Care 06/19/22 06/16/24 Provider, None [place] PCP - General 06/17/24 Trace Meza MD #[address] [phone] Consulting Physician Endocrinology 04/06/23 Ld Crowley MD #2 [facility] [address] [place] [address] Consulting Physician Urology 09/21/23 documented as of this encounter
[2025-01-02 08:13] LABS: Hematocrit 45.1 % (42.0-52.0); Hemoglobin 14.7 g/dL (14.0-18.0); Immature Granulocyte Percent A 0.5 % (0-0.5); Lymphocytes Absolute Auto 1.72 K/mm3 (0.9-3.2); Mean Corpuscular HGB Conc 32.6 g/dl (32-36); Mean Corpuscular Hemoglobin 28.5 pg (26-34); Mean Corpuscular Volume 87.4 fl (80-100); Nucleated Red Blood Cells Absolute Auto 0.000 K/mm3 (0.0-0.012); Nucleated Red Blood Cells Perc 0.0 % (0.0-0.2); Platelet Count Result 268 k/mm3 (150-375); Red Blood Count 5.16 M/mm3 (4.6-6.20); White Blood Count 8.5 K/mm3 (4.5-10.0)
[2025-01-02 08:23] LABS: INR 0.9; Prothrombin Time 12.1 Seconds (11.1-14.7)
[2025-01-02 08:24] LABS: Partial Thromboplastin Time 24.1 Seconds (22.3-36.8)
--- NOTE | 2025-01-02 08:31 | ED_ITS ---
HPI - Chest Pain General Chief Complaint: Chest Pain Stated Complaint: chest pain Time Seen by Provider: 01/02/25 07:35 History of Present Illness HPI narrative: About a week ago patient started having pain to his left chest, does not radiate, known shortness of breath or nausea, comes and goes, worse when he lays flat. Has history of diabetes and hypertension however had a birthday republican a week ago and stopped his blood pressure medications as he could not find it. His blood sugar was in the 3-400s this past week and he noticed his left leg had some tingling however once he got blood sugar out of control with insulin and Ozempic he has no focal numbness or weakness any more. Has never had chest pain like this before. Related Data Allergies Allergy/AdvReac Type Severity Reaction Status Date / Time ibuprofen Allergy Mild Rash Verified 01/02/25 07:52 Review of Systems 2 Review of Systems: All systems reviewed & are unremarkable except as noted in HPI and below Exam 2 Narrative: EXAMINATION OF ORGAN SYSTEMS/BODY AREAS: Constitutional: Vital signs per nursing GENERAL: Appears slightly anxious HEAD: Normal with no signs of head trauma. EYES: EOMI, conjunctiva normal ENT: Hearing grossly intact LUNGS: Nonlabored breathing. HEART: [Regular rate and rhythm] ABD: [Soft], [nontender to palpation] EXT: Normal range of motion SKIN: [No rashes or lesions.] NEURO: [Alert and oriented x 3. No gross focal sensory or strength deficits.] PSYCH: Normal affect Course Vital Signs Vital signs: Vital Signs Temperature 98 F 01/02/25 07:45 Pulse Rate 86 01/02/25 07:45 Respiratory Rate 20 01/02/25 07:45 Blood Pressure 181/99 H 01/02/25 07:45 Pulse Oximetry 98 01/02/25 07:45 Oxygen Delivery Room Air 01/02/25 07:45 Temperature 98 F 01/02/25 07:45 Pulse Rate 88 01/02/25 12:12 Respiratory Rate 18 01/02/25 12:12 Blood Pressure 182/116 H 01/02/25 12:12 Pulse Oximetry 98 01/02/25 12:12 Oxygen Delivery Room Air 01/02/25 08:01 MDM - Chest Pain MDM Narrative Medical decision making narrative: EKG on my independent interpretation at 7:39 a.m. shows sinus rhythm rate 87, SC will refer, QRS 83, QTC 403, there are T-wave inversions in 1, aVL, flattened T- waves in V6 otherwise no elevations or depressions Patient reports the pain severe, pressure was elevated here but he admits he has not been taking his medications. Creatinine elevated though I am unsure of his baseline; he does report kidney disease history. Initial troponin negative, chest x-ray unremarkable, given symptoms I will obtain CTA to rule out aortic catastrophe. Discussed with patient, he is concerned about the effect on his kidneys, I did discuss the risks and benefits, we cannot make the diagnosis without relief, and that his out of control blood sugar and blood pressure and not taking his medications were likely all contributing more to his CKD then 1 dose of IV contrast here for scan, but regardless it is his own decision whether not to obtain the scan given the risks of IV contrast. Ultimately patient would prefer to have the CT than not. Repeat EKG obtained here, sinus rhythm rate 83, SC 146, QRS 86, QTC 415, normal axis, T-wave inversions again redemonstrated but otherwise no new changes. CT showing possible pulmonary edema otherwise normal aorta. I did discuss these findings with the patient, my concern that he needs further cardiac workup given his abnormal EKG, chest pain, and abnormal CT, patient states that he cannot stay in the hospital and that he needs to go home. He does recognize my concern, understands that he can experience further cardiac injury or permanent disability or , but he cannot stay. I did discuss with him that he can always return to the emergency room if he changes his mind, and I will have him follow up with demurrage worker with referral information provided. Patient understands and agrees with plan. Since he is not sure where his lisinopril is, I will give another prescription, he is not sure with the dose is I will start him at 20 mg with 1 dose here. Lab Data 01/02/25 08:04 01/02/25 08:04 Labs: Lab Results 01/02/25 01/02/25 Range/Units 08:04 10:31 WBC 8.5 (4.5-10.0) K/mm3 RBC 5.16 (4.6-6.20) M/mm3 Hgb 14.7 (14.0-18.0) g/dL Hct 45.1 (42.0-52.0) % MCV 87.4 (80-100) fl MCH 28.5 (26-34) pg MCHC 32.6 (32-36) g/dl RDW 13.0 (11.5-14.5) % Plt Count 268 (150-375) k/mm3 MPV 9.3 (7.4-10.4) fl Immature Gran % (Auto) 0.5 (0-0.5) % Neut % (Auto) 64.7 (45.5-73.1) % Lymph % (Auto) 20.4 (18.3-44.2) % [place] % (Auto) 8.5 (2.6-8.5) % Eos % (Auto) 4.7 H (0-4.4) % Baso % (Auto) 1.2 (0.2-1.2) % Lymph # (Auto) 1.72 (0.9-3.2) K/mm3 [place] # (Auto) 0.7 H (0.1-0.6) K/mm3 Eos # (Auto) 0.4 H (0-0.3) K/mm3 Baso # (Auto) 0.1 (0.0-0.1) K/mm3 Abs Immat Gran (auto) 0.04 H (0.00-0.031) K/mm3 Absolute Neuts (auto) 5.5 (1.3-6.7) K/mm3 Absolute Nucleated RBC 0.000 (0.0-0.012) K/mm3 Nucleated RBC % 0.0 (0.0-0.2) % PT 12.1 (11.1-14.7) Seconds INR 0.9 APTT 24.1 (22.3-36.8) Seconds Sodium 134 L (137-145) mmol/L Potassium 4.3 (3.4-5.0) mmol/L Chloride 107 (98-107) mmol/L Carbon Dioxide 20 L (22-30) mmol/L Anion Gap 7 (4-12) mmol/L BUN 27 H (9-20) mg/dL Creatinine 1.32 H (0.7-1.3) mg/dL Estim Creat Clear Calc 81 ml/min Estimated GFR 58 L (59 - ) Glucose 310 H (65-110) mg/dL Calcium 9.1 (8.4-10.2) mg/dL Total Bilirubin 0.3 (0.2-1.3) mg/dL AST 34 (17-59) U/L ALT 25 (6-50) U/L Alkaline Phosphatase 109 (38-126) U/L Troponin I < 0.012 < 0.012 (0.000-0.034) ng/mL NT-Pro-B Natriuret Pep Pending Total Protein 6.8 (6.3-8.2) g/dL Albumin 3.5 (3.5-5.1) g/dL Lipase 150 (23-300) U/L Discharge Plan Discharge Clinical Impression: Chest pain, Abnormal ECG Patient Disposition: Home Condition: Stable Instructions: Chest Pain (ED) Additional Instructions: We did discuss today that I was concerned about your heart and felt you should stay for workup and to see a demurrage worker; you were unable to stay in the hospital today but will follow up with a demurrage worker in the clinic. If you change your mind about admission, please come back to the ER. Please make sure you are taking all of your medications as prescribed; keep your blood pressure and blood sugar normal. Patient Language: Romanian Prescriptions: New lisinopril 20 mg tablet 20 mg PO DAILY Qty: 30 0RF Follow-up/Referrals: Micky Harrison MD [Physician] - 1 Day PHYSICIAN,MECHANIC/WELDER [Primary Care Provider] -
[2025-01-02 08:46] LABS: Troponin I < 0.012 ng/mL (0.000-0.034)
[2025-01-02 08:53] LABS: Alanine Aminotransferase 25 U/L (6-50); Albumin Level 3.5 g/dL (3.5-5.1); Alkaline Phosphatase 109 U/L (38-126); Anion Gap 7 mmol/L (4-12); Aspartate Amino Transferase 34 U/L (17-59); Bilirubin,Total 0.3 mg/dL (0.2-1.3); Blood Urea Nitrogen 27 mg/dL (9-20); Calcium 9.1 mg/dL (8.4-10.2); Carbon Dioxide 20 mmol/L (22-30); Chloride 107 mmol/L (98-107); Estimated CRCL calculation 81 ml/min; Estimated Glomerular Filt Rate 58; Glucose 310 mg/dL (65-110); Lipase 150 U/L (23-300); Potassium 4.3 mmol/L (3.4-5.0); Sodium 134 mmol/L (137-145); Total Protein 6.8 g/dL (6.3-8.2)
[2025-01-02 08:55] VITALS: BP 195/110; PULSE 87; RESP 20; O2SAT 98
[2025-01-02 10:29] VITALS: BP 189/123; PULSE 81; RESP 20; O2SAT 99
--- NOTE | 2025-01-02 10:29 | ECG_ITS ---
Test Date: 2025-01-02 10:33:57 Measurements Intervals [place] Rate: 83 P: 58 IN: 146 QRS: 31 QRSD: 86 T: 167 QT: 353 QTc: 415 Interpretive Statements SINUS RHYTHM POOR R-WAVE PROGRESSION NONSPECIFIC T-WAVE ABNORMALITY Compared to ECG 01/02/2025 07:39:49 NO SIGNIFICANT CHANGE Electronically Signed On 01-03-2025 09:54:40 CDT by Douglas Fernandes M.D.
[2025-01-02 11:47] LABS: Troponin I < 0.012 ng/mL (0.000-0.034)
[2025-01-02 12:12] VITALS: BP 182/116; PULSE 88; RESP 18; O2SAT 98
[2025-01-02 13:00] LABS: NT Pro B Type Natriuretic Pept 1100 pg/mL (19.9-100)
== END 2025-01-02 12:13 | disposition home or self-care (01) ==
PROVIDERS: Emergency Provider Emergency Medicine
DX: R07.9 Chest pain, unspecified (principal); I12.9 Hypertensive chronic kidney disease with stage 1 through stage 4 chronic kidney disease, or unspecified chronic kidney disease; E11.22 Type 2 diabetes mellitus with diabetic chronic kidney disease; N18.9 Chronic kidney disease, unspecified; R94.31 Abnormal electrocardiogram [ECG] [EKG]; T46.5X6A Underdosing of other antihypertensive drugs, initial encounter; Z91.138 Patient's unintentional underdosing of medication regimen for other reason; Z79.4 Long term (current) use of insulin; Z79.85 Long-term (current) use of injectable non-insulin antidiabetic drugs; R91.8 Other nonspecific abnormal finding of lung field
CPT/HCPCS: 36415; 71046; 71275; 74174; 80053; 83690; 83880; 84484; 85025; 85610; 85730; 93005; 99284; A9270; Q9967

== ENCOUNTER 2025-03-14 01:17 | Emergency (ER) | payer OTHER, SELFPAY ==
--- OUTSIDE RECORDS SUMMARY | 2018-08-30 05:30 | XMS_ITS | Continuity of Care Document ---
Author Organization [facility] Address [address] [place] [address] Phone Care Team Providers Care Pulley Man Name Role Phone Anthony OTR/L, CHT, Eleni Unavailable Unavailable Procedures Procedure Date OT Evaluation Moderate Complexity Therapeutic Exercise Theraputty Advance Directives Directive Yes / No Effective Date File Name No Information Encounters Encounter Description Practice Location Reason(s) For Visit Diagnoses Date Provider Providers Copied on Encounter [facility], [address], [place], [place], [id number], [place] tel:[phone] [place] Carpal tunnel syndrome, left upper limbPain in left handStiffness of left hand, not elsewhere classifiedStiff ness of left wrist, not elsewhere classifiedEffus ion, left wrist 9 Anthony Knowles. [address] [facility], [address], [place], [address], [place]. tel:[phone] Referring Provider: Thaddeus Montgomery, [address] [place] [address] [address], [place], [address]. tel:[phone] Family History Family Member Type Diagnosis Age At Onset No Information Payers Payer name Insurance type Covered constitution party ID Authoriza tipepe(s) Medrisk EPO WC SP [id number] [place] [id number] Social History Type Description Quantity Date Captured Comments Sex Male Smoking Status No Information Chief Complaint And Reason For Visit No Information Reason For Referral Reason For Referral No Information History Of Present Illness Encounter Date Complaint History Of Prese nt Illness No Information Functional Status Date Functional Assessmen t No Information Instructions Date Instruction Additional Infor mation No Information Assessments Type Assessment Date No Information Patient Care Teams Name Effective Dates (start - stop) Status Members No Information
--- OUTSIDE RECORDS SUMMARY | 2018-08-30 05:30 | XMS_ITS | Continuity of Care Document ---
Author Organization [facility] Address [address] [place] [address] Phone Care Team Providers Care Mechanical Engineering Officer Name Role Phone Anthony OTR/L, CHT, Eleni Unavailable Unavailable Procedures Procedure Date OT Evaluation Moderate Complexity Therapeutic Exercise Theraputty Advance Directives Directive Yes / No Effective Date File Name No Information Encounters Encounter Description Practice Location Reason(s) For Visit Diagnoses Date Provider Providers Copied on Encounter [facility], [address], [place], [place], [id number], [place] tel:[phone] [place] Carpal tunnel syndrome, left upper limbPain in left handStiffness of left hand, not elsewhere classifiedStiff ness of left wrist, not elsewhere classifiedEffus ion, left wrist 9 Anthony Knowles. [address] [facility], [address], [place], [address], [place]. tel:[phone] Referring Provider: Thaddeus Montgomery, [address] [place] [address] [address], [place], [address]. tel:[phone] Family History Family Member Type Diagnosis Age At Onset No Information Payers Payer name Insurance type Covered green party ID Authoriza tipepe(s) Medrisk EPO WC SP [id number] [place] [id number] Social History Type Description Quantity Date Captured [...]
[2025-03-14] VITALS (8 sets, daily range): BP systolic 134–211; BP diastolic 87–113; PULSE 111–131; RESP 20–129; TEMP 36.4–36.6; O2SAT 93–99
--- NOTE | ~2025-03-14 | XR_ITS ---
Examination: XR chest 2V Clinical History: chest pain SOB Comparison: 01/02/2025 Technique: PA and Lateral Findings: Cardiomediastinal silhouette normal size and configuration. Lungs clear. No acute bony abnormality. IMPRESSION: 1. No acute cardiopulmonary findings. Reviewed, dictated and finalized at location R.
--- NOTE | ~2025-03-14 | CT_ITS ---
EXAMINATION: CTA chest PE protocol DATE: 03/14/2025 03:30 INDICATION: Chest pain. Cough. TECHNIQUE: Computed tomography angiography (CTA) of the chest was performed with 100 mL Omnipaque-350 intravenous contrast timed to evaluate the pulmonary arteries. Coronal maximum intensity projection 3D-reconstructions were created by the technologist. Automated exposure control and iterative reconstruction technique were employed. The dose-length product was 1207.13 mGy-cm. COMPARISON: Chest CT 01/02/2025 FINDINGS: The lungs demonstrate mild atelectasis. A calcified left lung nodule and calcified left hilar lymph nodes are consistent with old granulomatous disease. No pleural effusion. The heart size is normal. No pericardial effusion. There are acute pulmonary emboli in all lobes including in the distal main left and main right pulmonary arteries. The right ventricle of the heart is enlarged, consistent with right heart strain. No pericardial effusion. Calcifications in the spleen are consistent with old granulomatous disease. There is severe cervical spondylosis and mild thoracic spondylosis. IMPRESSION: 1. Extensive acute bilateral pulmonary emboli with right heart strain. Reviewed, dictated and finalized at location E.
--- OUTSIDE RECORDS SUMMARY | 2025-03-14 01:19 | XMS_ITS | Encounter Summary ---
Author Organization [facility] Address [address] [place] [address] Phone Care Team Providers Care Cryptologic Linguist Name Role Phone Ori Santiago MD Primary Care Provider [phone] Trace Meza MD Unavailable Ld Crowley MD Unavailable [phone] Provider, None Primary Care Provider Unavailabl e Reason for Visit * Reason Comments Medication Refill Encounter Details Date Type Department Care Team (Late st Contact Info) Description 12/16/2022 Refill [facility] [place] [address] [place] [address] Trace Meza MD #[address] [address] Medication Refill Social History Tobacco Use Types Packs/Day Years Used Date Smoking Tobacco: Never Smokeless Tobacco: Never Alcohol Use Standard Drinks/Week Comments No 0 (1 standard drink = 0.6 oz pur e alcohol) Sexually Active Control Partners Comments Yes Female Sex and Gender Information Value Date Recorded Sex Assigned at Male 06/17/2024 6:48 AM 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 No / Unsure 12/12/2022 8:22 AM CDT documented as of this encounter Miscellaneous Notes * Telephone Encounter - Lisa Lennon, RN - 12/16/2022 8:41 AM CDT Requested Prescriptions Pending Prescriptions Disp Refills ??? metFORMIN (GLUCOPHAGE) 1000 MG Tablet [Pharmacy Med Name: METFORMIN HCL 1,000 MG TABLET] 180 Tablet 1 Sig: TAKE 1 TABLET BY MOUTH TWICE A DAY WITH MEALS Next appt: 01/19/2023 documented in this encounter Plan of Treatment Upcoming Encounters Date Type Department Care Team (Late st Contact Info) Description 03/22/2025 9:00 AM CDT Office Visit [facility] - [facility]ology - [place] [address] [place] [address] Trace Meza MD #[address] [address] documented as of this encounter Visit Diagnoses Not on filedocumented in this encounter Care Teams Cryptologic Linguist Relationship Specialty Start Date End Date Ori Santiago MD [address] [place] [address] [address] [place] [address] PCP - General Primary Care 06/19/22 06/16/24 Provider, None [place] PCP - General 06/17/24 Trace Meza MD #2 [facility] [address] [place] [phone] Consulting Physician Endocrinology 04/06/23 Ld Crowley MD #2 [facility] [address] [place] [address] Consulting Physician Urology 09/21/23 documented as of this encounter
--- OUTSIDE RECORDS SUMMARY | 2025-03-14 01:19 | XMS_ITS | Clinical Summary ---
Author Organization [facility] Address [address] [place] [address] Care Team Providers Care Staff Sonographer Name Role Phone Miscellaneous, Not In File Primary Care Provider Unavailable Allergies Active Allergy Reactions Criticality Noted Date Comments Amlodipine Nausea Only 07/05/2018 Ibuprofen Rash Reaction: Rash, Iodinated Contrast Media Other (See comments) High Metformin Diarrhea Low 12/08/2017 Metrizamide Other (See comments) High Medications atorvastatin (LIPITOR) 10 mg tablet take 1 tablet by oral route every evening 90 3 6 Active blood-glucose meter (ACCU-CHEK CHAUNCEY PLUS METER) misc check glucose once daily 1 each 0 4 Active lancets (ACCU-CHEK FASTCLIX) misc check glucose 30 each 3 4 Active insulin syringe-needle U-100 (INSULIN SYRINGE) 1 mL 30 gauge x 5/16 syringe use with insulin x1/day 1 Box 6 2 Active aspirin 81 mg chewable tablet Take 81 mg by mouth daily. Active amLODIPine (NORVASC) 10 mg tablet Take 1 tablet (10 mg total) by mouth daily. 30 tablet 8 Active acetaminophen (TYLENOL) 325 mg tabletIndications: Pain Take 2 tablets (650 mg total) by mouth every 4 (four) hours as needed for pain. 30 tablet 8 Active insulin aspart U-100 (NovoLOG U-100 Insulin aspart) 100 unit/mL injection Inject 20 Units under the skin 3 (three) times a day before meals. Active insulin lispro (HumaLOG) 100 unit/mL injection Inject under the skin with meals average U per day 48 10 mL 1 8 Active insulin glargine (LANTUS,BASAGLAR) 100 unit/mL (3 mL) insulin pen Inject 80 unites under the skin nightly 10 pen 1 8 Active lisinopril (PRINIVIL,ZESTRIL) 10 mg tablet lisinopril 10 mg tablet Active metoprolol XL (TOPROL-XL) 25 mg 24 hr tablet TK 1 T PO D 3 9 Active HYDROcodone-acetam inophen (NORCO) 5-325 mg per tabletIndications: Pain Take 1 tablet by mouth every 6 (six) hours as needed for pain. 25 tablet 9 Active pen needle, diabetic (BD ULTRA-FINE MINI PEN NEEDLE) 31 gauge x 3/16 needle Use to inject insulins 4 times each day 400 each 3 9 Active ondansetron ODT (ZOFRAN-ODT) 4 mg disintegrating tablet Take 1 tablet (4 mg total) by mouth every 8 (eight) hours as needed for nausea or vomiting 20 tablet 4 Active LORazepam (Ativan) 1 mg tabletIndications: Facilitation of outpatient MRI Take 1 tablet (1 mg total) by mouth once for 1 dose 1 tablet 4 Active Active Problems Problem Noted Date Diagnosed [...] patient on diabetic diet - Agree with health educator consult. Please have patient meet with [...] right-sided low back pain with left-sided sciatica Encounters Date Type Department Care Team Description 02/23/2025 Telephone [facility] Orthopedics and Sports Medicine [address] [facility] [address], [place] [address] Douglas Trotter DO MRI 02/17/2025 11:45 AM CDT Ancillary Procedure [facility] at [address] [phone] Pain of right hip 02/17/2025 11:30 AM CDT Office Visit [facility] at [address] [place] [phone] Douglas Trotter DO Chronic right hip pain (Primary Dx); Pain of right hip from Last 3 Months Surgical History Surgery Date Site/Laterality Comments WRIST [...] on file Legal 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 Gender Identity Not on file Sexual Orientation Not on file Obstetrics History Last Filed Vital Signs Vital Sign Reading Time Taken Comments Blood Pressure 149/90 02/17/2025 11:53 AM CDT Pulse 91 02/17/2025 11:53 AM CDT Temperature 36.8 C (98.2 F) 10/25/2023 10:42 AM CDT Respiratory Rate 17 10/25/2023 5:30 PM CDT Oxygen Saturation 94% 10/25/2023 5:30 PM CDT Inhaled Oxygen Concentration - - Weight 129.7 kg (286 lb) 02/17/2025 11:53 AM CDT Height 167.6 cm (5' 6) 02/17/2025 11:53 AM CDT Body Mass Index 46.16 02/17/2025 11:53 AM CDT Plan of Treatment Health Maintenance [...] Completed 12/17/2017 Medical Devices Implanted Type Area Land Economist Device Identifier Shelf Expiration Date Model / Serial / Lot Orthopedic Hardware-Left Arm Left: Arm Description:Left arm 12 inch plate wrist to elbow Screws holding the plate in place Procedures Procedure Name Priority Date/Time Associated Diagnosis Comments XR HIP RIGHT 2 OR 3 VIEWS Schedule Routine, Read Routine (OP Routine) 02/17/2025 11:51 AM CDT Pain of right hip EGFR STAT 10/25/2023 12:57 PM CDT HEMOGLOBIN A1C Routine 02/01/2018 4:04 AM CDT LIPID PANEL STAT 01/31/2018 11:38 PM CDT HEPATITIS PANEL, ACUTE STAT 12/17/2017 12:34 PM CDT DIABETES FOOT EXAM Routine 12/08/2017 DIABETES EYE EXAM Routine 08/19/2016 from Last 3 Months or Most Recently Relevant to Health Maintenance Results * XR Hip Right 2 or 3 Views (02/17/2025 11:51 AM CDT) Anatomical Region Laterality Modality Lower Extremities, Hip, Pelvis Right D igital Radiography 02/17/2025 12:3 7 PM CDT Narrative 02/17/2025 12:40 PM CDT EXAM DESCRIPTION: XR HIP RIGHT 2 OR 3 VIEWS REASON FOR STUDY: Pain Pt complains of chronic right hip pain. No recent injury or prior surgery. Prior hernia surgery TECHNIQUE: There are 2 radiographic view(s) of the right hip . COMPARISON: Prior x-rays 10/07/[address] also of 10/07/2023 that demonstrated a right trochanteric hip fracture. Mild FINDINGS: Normal mineralization. No acute fracture or dislocation. Mild osteoarthritis right hip. Soft tissues demonstrate metallic densities from a surgical mesh as was seen on the prior plain films. IMPRESSION: 1. No acute fracture. 2. Mild osteoarthritis right hip. THIS IS AN ELECTRONICALLY VERIFIED FINAL REPORT 02/17/2025 12:40 PM - Electronically signed by Douglas Foote M.D. MJ T: Report ID: [id number] Reading Location: [id number] Procedure Note Douglas Foote MD - 02/17/2025 EXAM DESCRIPTION: XR HIP RIGHT 2 OR 3 VIEWS REASON FOR STUDY: Pain Pt complains of chronic right hip pain. No recent injury or prior surgery. Prior hernia surgery TECHNIQUE: There are 2 radiographic view(s) of the right hip . COMPARISON: Prior x-rays 10/07/[address] also of 10/07/2023 that demonstrated a right trochanteric hip fracture. Mild FINDINGS: Normal mineralization. No acute fracture or dislocation. Mild osteoarthritis right hip. Soft tissues demonstrate metallic densities from a surgical mesh as wasseen on the prior plain films. IMPRESSION: 1. No acute fracture. 2. Mild osteoarthritis right hip. THIS IS AN ELECTRONICALLY VERIFIED FINAL REPORT 02/17/2025 12:40 PM - Electronically signed by Douglas Foote M.D. MJ T: Report ID: [id number] Reading Location: [place] [address] Douglas Trotter DO IMG XR PROCEDURES Julieta l Result * eGFR (10/25/2023 12:57 PM CDT) eGFR [...] John Dodson MD LAB BLOOD ORDERABLES Julieta l Result Performing Organization Address City/[facility] [address]/ZIP Co de Phone Number [facility] [place] [address] * (ABNORMAL) Hemoglobin A1c (02/01/2018 4:04 AM CDT) Hgb A1C 9.8(H) 4.0 - 5.6 % [facility] Estimated Average Glucose 235 mg/dL [facility] Comment: The ADA recommends reporting an estimated Average Glucose (eAG) with all Hemoglobin A1c results using the equation derived from a study of 507 normal and diabetic adults. Minority populations were underrepresented and children were not included. (Diabetes Care 31:3111-5111, 2008). The eAG is not equivalent to a fasting glucose. Blood specimen (specimen) 02/01/2018 4:04 AM CDT 02/01/2018 4:11 AM CDT Narrative [facility] - 02/01/2018 6:34 AM CDT THE COLLECTION LOCATION IS [facility] ED2-30 us George Manriqeuz MD LAB BLOOD ORDERABLES Fi nal Result Performing Organization Address [facility] [address]/[facility] Co de Phone Number [facility] [place] [address] * (ABNORMAL) Lipid panel (01/31/2018 11:38 PM CDT) Cholesterol 230(H) 30 - 200 mg/dL [facility] Comment: Interpretive Data Desirable: <200 mg/dL Borderline high: 200-239 mg/dL High: > or = 240 mg/dL Literature Reference: National Cholesterol Education Program (NCEP) Expert Panel on Detection, Evaluation, and Treatment of High Blood Cholesterol in Adults (Adult Treatment Panel III). Circulation 2004; 110:227. Current interpretive data was last revised on 2015. Triglycerides 239(H) 0 - 150 mg/dL [facility] Comment: Interpretive Data Desirable: < 150 mg/dL Borderline High: 150 - 199 mg/dL High: 200 - 499 mg/dL Very High: > or = 499 mg/dL Literature Reference: See Cholesterol Current interpretive data was last revised on 2015. HDL 41 >=40 mg/dL [facility] Comment: Interpretive Data Less than 40 mg/dL - low; A major risk factor for heart disease. Greater than or equal to 60 mg/dL - High; considered protective of heart disease. Literature Reference: See Cholesterol Current interpretive data was last revised on 2015. LDL, calculated 141(H) 10 - 129 mg/dL [facility] Comment: Interpretive Data Optimal: < 100 mg/dL Near Optimal: 100 - 129 mg/dL Borderline High: 130 - 159 mg/dL High: 160 - 189 mg/dL Very high: > or = 190 mg/dL Literature Reference: See Cholesterol Current interpretive data was last revised on 2015. Non-HDL Cholesterol 189 mg/dL [facility] Comment: Interpretive Data When triglycerides are >200 mg/dL, non-HDL C is a secondary target of therapy, with a goal 30 mg/dL higher than the identified LDL-C goal. Reference: See Cholesterol Reference. Current interpretive data was last revised 2015. Blood specimen (specimen) 01/31/2018 11:38 PM CDT 01/31/2018 11:52 PM CDT Narrative [facility] - 02/01/2018 4:58 PM CDT us Elvira Sinclair MD LAB BLOOD ORDERABLES Final Result [facility] Department [place] [address] * Hepatitis panel, acute (12/17/2017 12:34 PM CDT) Hep A IgM Negative Negative [facility] (IRAJ) Comment:Testing performed by : [facility], [address] [place] [address], [place]., [address] Hep B core IgM Negative Negative [facility] (IRAJ) Comment:Testing performed by : [facility], [address] [place] [address]., [id number] Hep C Ab Negative Negative [facility] (IRAJ) Comment:Testing performed by : [facility], [address] [place] [address]., [address] HepBsAg Negative Negative [facility] (IRAJ) Comment:Testing performed by : [facility], [address] [place] [address], [place]., [address] Blood specimen (specimen) 12/17/2017 12:34 PM CDT 12/17/2017 3:13 PM CDT Narrative [facility] (IRAJ) - 12/17/2017 4:11 PM CDT Nabil Castorena MD LAB MICROBIOLOGY - GENERAL OR DERABLES Final Result [facility] (IRAJ) [address] [facility] Department [place] [address] * DIABETES FOOT EXAM (12/08/2017) Diabetic Foot Exam Unknown Historical Provider HEALTH MAINTENANCE Final Result * DIABETES EYE EXAM (08/19/2016) Diabetic Eye Exam Unknown Historical Provider HEALTH MAINTENANCE Final Result from Last 3 Months or Most Recently Relevant to Health Maintenance Insurance [employer] [facility] [employer] [facility] [place] [address] [place] [address] Advance Directives For more information, please contact: [phone] * Full Code (Latest Code Status on File) Date Activated Date Inactivated Comments 02/01/2018 6:07 AM 02/02/2018 5:51 PM * Full Code Date Activated Date Inactivated Comments 12/12/2017 1:50 PM 12/23/2017 1:51 PM Care Teams Staff Sonographer Relationship Specialty Start Date End Date Miscellaneous, Not In File PCP - General 02/22/25
--- OUTSIDE RECORDS SUMMARY | 2025-03-14 01:19 | XMS_ITS | Encounter Summary ---
Author Organization [facility] Address [address] [place] [address] Phone Care Team Providers Care Cable Dispatcher Name Role Phone Ori Santiago MD Primary Care Provider [phone] Trace Meza MD Unavailable Ld Crowley MD Unavailable [phone] Provider, None Primary Care Provider Unavailabl e Reason for Visit * Reason Comments Medication Refill Encounter Details Date Type Department Care Team (Late st Contact Info) Description 02/12/2023 Refill [facility] - [place] #2 [place] [address] Trace Meza MD #[address] [address] Medication Refill Social History Tobacco Use Types Packs/Day Years Used Date Smoking Tobacco: Never Smokeless Tobacco: Never Alcohol Use Standard Drinks/Week Comments No 0 (1 standard drink = 0.6 oz pur e alcohol) Sexually Active Control Partners Comments Yes Female Sex and Gender Information Value Date Recorded Sex Assigned at Male 06/17/2024 6:48 AM PRIVATE 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 Legal Sex Male 11:35 PM CDT Gender Identity Male 06/17/2024 6:48 AM PRIVATE 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 Sexual Orientation Not on file documented as [...] Visit [facility] - Endocrinology - [place] #[address] [place] [address] Trace Meza MD #[address] [address] documented as of this encounter Visit Diagnoses Not on filedocumented in this encounter Care Teams Cable Dispatcher Relationship Specialty Start Date End Date Ori Santiago MD 4 [facility] [address] [place] [address] PCP - General Primary Care 06/19/22 06/16/24 Provider, None [place] PCP - General 06/17/24 Trace Meza MD #2 [facility] [address] [place] [address] Consulting Physician Endocrinology 04/06/23 Ld Crowley MD [facility]2 [facility] [address] [place] [address] Consulting Physician Urology 09/21/23 documented as of this encounter
--- OUTSIDE RECORDS SUMMARY | 2025-03-14 01:19 | XMS_ITS | Encounter Summary ---
Author Organization [facility] Address [address] [place] [address] Phone Care Team Providers Care Spinning Frame Tender Name Role Phone Provider, None Primary Care Provider Unavailabl e Ori Santiago MD Primary Care Provider [phone] Trace Meza MD Unavailable Ld Crowley MD Unavailable [phone] Provider, None Primary Care Provider Unavailabl e Reason for Visit * Reason Comments Medication Refill Encounter Details Date Type Department Care Team (Late st Contact Info) Description 12/01/2021 Refill [facility] - [place] #2 [place] [address] Trace Meza MD #[address] [address] Medication Refill Social History Tobacco Use Types Packs/Day Years Used Date Smoking Tobacco: Never Smokeless Tobacco: Never Alcohol Use Standard Drinks/Week Comments No 0 (1 standard drink = 0.6 oz pur e alcohol) Sexually Active Control Partners Comments Yes Female Sex and Gender Information Value Date Recorded Sex Assigned at Male 06/17/2024 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 Legal Sex Male 11:35 PM CDT Gender Identity Male 06/17/2024 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 Sexual Orientation Not on file documented as [...] Visit [facility] - [place] #2 [place] [address] Trace Meza MD #2 [facility] [address] [place] [address] documented as of this encounter Visit Diagnoses Not on filedocumented in this encounter Care Teams Spinning Frame Tender Relationship Specialty Start Date End Date Provider, None [place] PCP - General 03/28/21 06/18/22 Ori Santiago MD [address] [place] [address] [facility] [address] [place] [address] PCP - General Primary Care 06/19/22 06/16/24 Provider, None [place] PCP - General 06/17/24 Trace Meza MD #2 [facility] [address] [place] [address] Consulting Physician Endocrinology 04/06/23 Ld Crowley MD #2 [facility] [address] [place] [address] Consulting Physician Urology 09/21/23 documented as of this encounter
--- OUTSIDE RECORDS SUMMARY | 2025-03-14 01:19 | XMS_ITS | Encounter Summary ---
Author Organization [facility] Address [address] [place] [address] Phone Care Team Providers Care Extractor Filler Name Role Phone Ori Santiago MD Primary Care Provider [phone] Trace Meza MD Unavailable Ld Crowley MD Unavailable [phone] Provider, None Primary Care Provider Unavailabl e Reason for Visit * Reason Comments Medication Refill Encounter Details Date Type Department Care Team (Late st Contact Info) Description 08/19/2023 Refill [facility] - End[facility]ology - [place] #2 [place] [address] Trace Meza MD #[address] [address] Medication Refill Social History Tobacco Use Types Packs/Day Years Used Date Smoking Tobacco: Never Smokeless Tobacco: Never Alcohol Use Standard Drinks/Week Comments No 0 (1 standard drink = 0.6 oz pur e alcohol) Sexually Active Control Partners Comments Yes Female Sex and Gender Information Value Date Recorded Sex Assigned at Male 06/17/2024 6:48 AM TIP PRINTER Legal Sex Male 11:35 PM CDT Gender Identity Male 06/17/2024 6:48 AM TIP PRINTER Sexual Orientation Not on file documented as of this encounter Miscellaneous Notes * Telephone Encounter - Lisa Lennon, RN - 08/19/2023 3:34 PM TIP PRINTER Requested Prescriptions Pending Prescriptions Disp Refills Continuous Blood Gluc Sensor (Dexcom G6 Sensor) Misc [Pharmacy Med Name: DEXCOM G6 SENSOR] 5 Sig: USE 1 EACH BY DOES NOT APPLY ROUTE EVERY 10 DAYS. CHANGE SENSOR EVERY 10 DAYS. Next appt: 09/08/2023 PRINTER * Telephone Encounter - Serena Love RMA - 08/19/2023 2:47 PM CST Patient also wanted to let you know that he stopped taking the victoza, it gave him bad anxiety along with pretty bad stomach pains PRINTER documented in this encounter Plan of Treatment Upcoming Encounters Date Type Department Care Team (Late st Contact Info) Description 03/22/2025 9:00 AM CDT Office Visit [facility] - Endocrinology - [place] [address] [place] [address] Trace Meza MD #[address] [phone] documented as of this encounter Visit Diagnoses Not on filedocumented in this encounter Care Teams Extractor Filler Relationship Specialty Start Date End Date Ori Santiago MD [address] [place] [address] [facility] [address] [place] [address] PCP - General Primary Care 06/19/22 06/16/24 Provider, None [place] PCP - General 06/17/24 Trace Meza MD #[address] [address] Consulting Physician Endocrinology 04/06/23 Ld Crowley MD #[address], [facility] [address] [place] [address] Consulting Physician Urology 09/21/23 documented as of this encounter
--- OUTSIDE RECORDS SUMMARY | 2025-03-14 01:19 | XMS_ITS | Clinical Summary ---
Author Organization [facility] [employer] Address [address] [place] [address] Care Team Providers Care Fitter Tacker Name Role Phone Unknown, Provider Primary Care Provider Unavaila ble Source Comments [facility] [employer] [employer],non-owned Affiliates and Associated Physician Practices is amultiple site organization consisting of ambulatory clinics and hospital sitesin [place], [place], [place] and [place]. This disclosure is being madepursuant to the Care Everywhere program and may not contain all information available regarding this patient. Last updated 18.[facility] [employer] [employer] Allergies Active Allergy Reactions Criticality Noted Date [...] on file Legal Sex Male 6:[address] MESSENGER Gender Identity Not on file Sexual Orientation [...] 156 kg (344 lb) 04/28/2018 4:[address] MESSENGER Height 170.2 cm (5' 7) 04/28/2018 4:[address] MESSENGER Body Mass Index 53.88 04/28/2018 4:[address] MESSENGER Plan of Treatment Health Maintenance Due Date [...] 02/12/2019 11/12/2018, , 12/12/2017, Additional history exists DEPRESSION SCREENING 06/22/2024 DIABETES - URINE PROTEIN SCREENING 06/22/2024 COVID-19 VACCINE (1 - season) 2025 INFLUENZA VACCINE (#1) 2025 ZOSTER VACCINE (1 [...] this topic Medical Devices Implanted Type Area Agriculture Scientist Device Identifier Shelf Expiration Date Model / Serial / Lot 2.4 Mm Cortex Screws Self Tapping 16mm Implanted:Qty: 1 on 10/24/2017 by Tracy Whelan MD at [facility] Left: Radius Synthes Trauma 201.646 / / 2.4 Mm Cortex Screws Self Tapping 18mm Implanted:Qty: 2 on 10/24/2017 by Tracy Whelan MD at [facility] Left: Radius Synthes Trauma 201.648 / / Screw Bn 2.7mm 16mm Lc Dcp Ss [address] St Ns Implanted:Qty: 1 on 10/24/2017 by Tracy Whelan MD at [facility] Left: Radius Synthes Usa 204.816 / / Plate [id number] 14 Hl Lmt Cntct Tpr Implanted:Qty: 1 on 10/24/2017 by Tracy Whelan MD at [facility] Left: Radius Synthes Usa 223.641 / / Graft Bone Ac Cnxs Ntr Dbm 5cc Ptty Syr - [id number] Implanted:Qty: 1 on 10/24/2017 by Tracy Whelan MD at [facility] Left: Radius [employer] 02/16/2018 02-3000-05 0 / [id number] / [id number] Screw 35mm 18mm Implanted:Qty: 1 on 10/24/2017 by Tracy Whelan MD at [facility] Left: Radius Synthes Usa 204.818 / / Screw 35mm 20mm Implanted:Qty: 1 on 10/24/2017 by Tracy Whelan MD at [facility] Left: Radius 204.820 / / Screw Bn 3.5mm 22mm Lcp Ss [address] Ns Sm Implanted:Qty: 1 on 10/24/2017 by Tracy Whelan MD at [facility] Left: Radius Synthes Usa 204.822 / / Explanted Type Area Agriculture Scientist Device Identifier Shelf Expiration Date Model / Serial / Lot Girard Tefl 6 X 6 Full Sht Explanted:Qty: 1 on 10/24/2017 by Tracy Whelan MD at [facility] Left: Wrist Bard Peripheral Vascular 08/19/2022 [id number] / / [id number] Procedures Procedure Name Priority Date/Time Associated Diagnosis Comments BASIC METABOLIC PANEL (CALCIUM TOTAL) STAT 10/26/2017 5:59 AM CDT HEMOGLOBIN A1C Routine 10/25/2017 5:28 AM CDT from Last 3 Months or Most Recently Relevant to Health Maintenance Results * (ABNORMAL) BASIC METABOLIC PANEL (CALCIUM TOTAL) (10/26/2017 5:59 AM CDT) BUN 7 7 - 26 mg/dL 10/26/2017 7:26 AM CDT [facility] Creatinine 0.8 0.6 - 1.2 mg/dL 10/26/2017 7:26 AM CDT [facility] Sodium 135(L) 136 - 145 mmol/L 10/26/2017 7:26 AM [facility] Potassium 3.6 3.5 - 4.5 mmol/L 10/26/2017 7:26 AM [facility] Chloride 98 98 - 107 mmol/L 10/26/2017 7:26 AM [facility] CO2 23 22 - 29 mmol/L 10/26/2017 7:26 AM [facility] Glucose 255(H) 70 - 115 mg/dL 10/26/2017 7:26 AM [facility] Calcium 8.9 8.4 - 10.2 mg/dL 10/26/2017 7:26 AM [facility] Anion Gap 18 8 - 18 10/26/2017 7:26 AM [facility] BUN/Creatinine Ratio 9 7 - 23 10/26/2017 7:26 AM [facility] Osmolality Calculated 287 270 - 300 mOsm/kg 10/26/2017 7:26 AM [facility] eGFR >60 >60 mL/min/1.7 3 m2 10/26/2017 7:26 AM [facility] Blood BLOOD SPECIMEN / Unknown Venipuncture / Unknown 10/26/2017 5:59 AM CDT 10/26/2017 6:52 AM [facility] Mark Goncalves MD LAB - CHEMISTRY ORDERABLES Final Result [facility] [address] [place] [address] * (ABNORMAL) HEMOGLOBIN A1C (10/25/2017 5:28 AM T) Hemoglobin A1c 12.3(H) 4.4 - 6.3 % 10/25/2017 8:23 AM [facility] Estimated Average Glucose 306 mg/dL 10/25/2017 8:23 AM [facility] Comment: HbA1c Interpretation: Treatment target values recommended by ADA and other clinical organizations should be used to evaluate metabolic control in patients. Treatment Target Values: Normal : < 5.7% Pre-diabetes: 5.7-6.4% Diabetes: Equal to or greater than 6.5% Reference: [place] [employer] Association Standards of Care in Diabetes -2014 In patients 70 years and older consider HbA1c target range of 7.0-7.5% Reference: Diabetes Mellitus in Older People: Position Statement on behalf of the International Association of Gerontology and Geriatrics (IAGG), the Diabetes Working Green Party for Older People (EDWPOP), and the International Task Force of Experts in Diabetes. Moe Grimm et al. J [place] [employer] Association. 2012 Test results diagnostic [...] LAB - CHEMISTRY ORDERABLES Fi nal Result [address] [phone] from Last 3 Months or Most Recently Relevant to Health Maintenance Insurance [employer]IC Advance Directives * Full Code (Latest Code Status on File) Date Activated Date Inactivated Comments 10/24/2017 1:55 PM 10/26/2017 6:13 PM * Full Code Date Activated Date Inactivated Comments 10/23/2017 11:22 PM 10/24/2017 1:55 PM Care Teams Fitter Tacker Relationship Specialty Start Date End Date Unknown, Provider PCP - General 11/04/17
--- OUTSIDE RECORDS SUMMARY | 2025-03-14 01:19 | XMS_ITS | Encounter Summary ---
Author Organization [facility] Address [address] [place] [address] Phone Care Team Providers Care Sql Etl Developer Name Role Phone Ori Santiago MD Primary Care Provider [phone] Trace Meza MD Unavailable Ld Crowley MD Unavailable [phone] Provider, None Primary Care Provider Unavailabl e Reason for Visit * Reason Comments Medication Refill Encounter Details Date Type Department Care Team (Late st Contact Info) Description 01/13/2023 Refill [facility] - End[facility] - [place] [address] [place] [address] Trace Meza MD #[address] [address] Medication Refill Social History Tobacco Use Types Packs/Day Years Used Date Smoking Tobacco: Never Smokeless Tobacco: Never Alcohol Use Standard Drinks/Week Comments No 0 (1 standard drink = 0.6 oz pur e alcohol) Sexually Active Control Partners Comments Yes Female Sex and Gender Information Value Date Recorded Sex Assigned at Male 06/17/2024 6:48 AM TIN DIPPER Legal Sex Male 11:35 PM CDT Gender Identity Male 06/17/2024 6:48 AM TIN DIPPER Sexual Orientation Not on file documented as [...] Visit [facility] - Endocrinology - [place] [address] [place] [phone] Trace Meza MD #[address] [place] [address] [place] [phone] documented as of this encounter Visit Diagnoses Not on filedocumented in this encounter Care Teams Sql Etl Developer Relationship Specialty Start Date End Date Ori Santiago MD [address] [place] [address] [facility] [address] [place] [address] PCP - General Primary Care 06/19/22 06/16/24 Provider, None [place] PCP - General 06/17/24 Trace Meza MD #2 [place] [address] [place] [phone] Consulting Physician Endocrinology 04/06/23 Ld Crowley MD [facility] [address] [place] [address] Consulting Physician Urology 09/21/23 documented as of this encounter
--- OUTSIDE RECORDS SUMMARY | 2025-03-14 01:19 | XMS_ITS | Encounter Summary ---
Author Organization [facility] Address [address] [place] [address] Phone Care Team Providers Care Sheeter Machine Operator Name Role Phone Ori Santiago MD Primary Care Provider [phone] Trace Meza MD Unavailable Ld Crowley MD Unavailable [phone] Provider, None Primary Care Provider Unavailabl e Reason for Visit * Reason Comments Medication Refill Encounter Details Date Type Department Care Team (Late st Contact Info) Description 03/16/2023 Refill [facility] #2 [place] [address] Trace Meza MD #[address] [address] Medication Refill Social History Tobacco Use Types Packs/Day Years Used Date Smoking Tobacco: Never Smokeless Tobacco: Never Alcohol Use Standard Drinks/Week Comments No 0 (1 standard drink = 0.6 oz pur e alcohol) Sexually Active Control Partners Comments Yes Female Sex and Gender Information Value Date Recorded Sex Assigned at Male 06/17/2024 6:48 AM WOOL HAT FLANGER Legal Sex Male 11:35 PM CDT Gender Identity Male 06/17/2024 6:48 AM WOOL HAT FLANGER Sexual Orientation Not on file COVID-19 Exposure [...] Visit [facility] - Endocrinology - [place] [address] [place] [address] Trace Meza MD #[address] [address] documented as of this encounter Visit Diagnoses Not on filedocumented in this encounter Care Teams Sheeter Machine Operator Relationship Specialty Start Date End Date Ori Santiago MD [address] [place] [address] [address] [place] [address] PCP - General Primary Care 06/19/22 06/16/24 Provider, None [place] PCP - General 06/17/24 Trace Meza MD #2 [facility] [address] [place] [address] Consulting Physician Endocrinology 04/06/23 Ld Crowley MD #2 [facility] [address] [place] [address] Consulting Physician Urology 09/21/23 documented as of this encounter
--- NOTE | 2025-03-14 01:22 | ECG_ITS ---
Test Date: 2025-03-14 01:24:40 Measurements Intervals [place] Rate: 118 P: 46 WY: 142 QRS: 26 QRSD: 85 T: 51 QT: 327 QTc: 458 Interpretive Statements SINUS TACHYCARDIA NONSPECIFIC ST & T-WAVE ABNORMALITY ABNORMAL RHYTHM ECG Compared to ECG 01/02/2025 10:33:57 HEART RATE INCREASED Electronically Signed On 03-14-2025 12:26:03 CDT by Douglas Fernandes M.D.
[2025-03-14 01:37] LABS: Hematocrit 42.4 % (42.0-52.0); Hemoglobin 14.3 g/dL (14.0-18.0); Immature Granulocyte Percent A 0.8 % (0-0.5); Lymphocytes Absolute Auto 4.29 K/mm3 (0.9-3.2); Mean Corpuscular HGB Conc 33.7 g/dl (32-36); Mean Corpuscular Hemoglobin 28.8 pg (26-34); Mean Corpuscular Volume 85.3 fl (80-100); Nucleated Red Blood Cells Absolute Auto 0.000 K/mm3 (0.0-0.012); Nucleated Red Blood Cells Perc 0.0 % (0.0-0.2); Platelet Count Result 291 k/mm3 (150-375); Red Blood Count 4.97 M/mm3 (4.6-6.20); White Blood Count 14.8 K/mm3 (4.5-10.0)
[2025-03-14 01:51] LABS: Alanine Aminotransferase 24 U/L (6-50); Albumin Level 3.7 g/dL (3.5-5.1); Alkaline Phosphatase 141 U/L (38-126); Anion Gap 13 mmol/L (4-12); Aspartate Amino Transferase 33 U/L (17-59); Bilirubin,Total 0.4 mg/dL (0.2-1.3); Blood Urea Nitrogen 23 mg/dL (9-20); Calcium 8.5 mg/dL (8.4-10.2); Carbon Dioxide 18 mmol/L (22-30); Chloride 102 mmol/L (98-107); Estimated Glomerular Filt Rate 52; Glucose 482 mg/dL (65-110); Lipase 176 U/L (23-300); Potassium 4.1 mmol/L (3.4-5.0); Sodium 133 mmol/L (137-145); Total Protein 7.1 g/dL (6.3-8.2)
[2025-03-14 01:52] LABS: INR 1.0; Partial Thromboplastin Time 27.2 Seconds (22.3-36.8); Prothrombin Time 12.9 Seconds (11.1-14.7)
--- OUTSIDE RECORDS SUMMARY | 2025-03-14 01:54 | XMS_ITS | Encounter Summary ---
Author Organization [facility] Address [address] [place] [address] Phone Care Team Providers Care Tax Map Technician Name Role Phone Ori Santiago MD Primary Care Provider [phone] Trace Meza MD Unavailable Ld Crowley MD Unavailable [phone] Provider, None Primary Care Provider Unavailabl e Reason for Visit * Reason Comments Medication Refill Encounter Details Date Type Department Care Team (Late st Contact Info) Description 01/13/2023 Refill [facility] - End[facility]ology - [place] #2 [place] [address] Trace Meza MD #[address] [address] Medication Refill Social History Tobacco Use Types Packs/Day Years Used Date Smoking Tobacco: Never Smokeless Tobacco: Never Alcohol Use Standard Drinks/Week Comments No 0 (1 standard drink = 0.6 oz pur e alcohol) Sexually Active Control Partners Comments Yes Female Sex and Gender Information Value Date Recorded Sex Assigned at Male 06/17/2024 6:48 AM TARPER Legal Sex Male 11:35 PM CDT Gender Identity Male 06/17/2024 6:48 AM TARPER Sexual Orientation Not on file documented as [...] Visit [facility] - Endocrinology - [place] #2 [place] [phone] Trace Meza MD #2 [facility] [address] [place] [phone] documented as of this encounter Visit Diagnoses Not on filedocumented in this encounter Care Teams Tax Map Technician Relationship Specialty Start Date End Date Ori Santiago MD [address] [place] [address] [facility] [address] [place] [address] PCP - General Primary Care 06/19/22 06/16/24 Provider, None [place] PCP - General 06/17/24 Trace Meza MD #2 [facility] [address] [place] [phone] Consulting Physician Endocrinology 04/06/23 Ld Crowley MD #2 [facility] [address] [place] [address] Consulting Physician Urology 09/21/23 documented as of this encounter
--- OUTSIDE RECORDS SUMMARY | 2025-03-14 01:54 | XMS_ITS | Clinical Summary ---
Author Organization [facility] Address [address] [place] [address] Phone Care Team Providers Care Materials Manager Name Role Phone Trace Meza MD Unavailable Ld Crowley MD Unavailable Provider, None Primary Care Provider Unavailabl e Allergies Active Allergy Reactions Criticality Noted Date Comments Amlodipine Nausea 07/05/2018 Iodinated Contrast Media Anaphylaxis 07/09/2018 Ibuprofen Hives 07/02/2018 Medications Blood Glucose Monitoring Suppl Device Test four times daily. 1 Each 0 Active Lancets Misc Test four times daily. 400 Lancet 3 0 Active Glucose Blood Strip Test four times daily. 400 Strip 3 0 Active Insulin Syringe-Needle U-100 (INSULIN SYRINGE 1CC/30GX5/16) 30G X 5/16 1 ML Misc Use to inject insulin 2x daily 200 Each 3 0 Active Glucose Blood (OneTouch Verio) Strip Test blood glucose 4x daily. 400 Strip 3 2 Active Blood Glucose Monitoring Suppl (OneTouch Verio) w/Device Kit 1 Kit by Does not apply route 4 times daily. Test blood glucose 4x daily. 1 Kit 2 Active OneTouch Delica Lancets 33G Misc 1 Lancet by Does not apply route 4 times daily. Test blood glucose 4x daily. 400 Lancet 3 2 Active aspirin 81 MG Chewable Tablet Chew 1 tablet every day by oral route. 8 Active polyethylene glycol (GLYCOLAX, MIRALAX) 17 g PackIndications :Constipation Take 1 Packet by mouth 2 times daily as needed for Constipation - 1st line. Dissolve in 4-8 oz of liquid. Indications: Constipation 90 Packet 4 Active Additional Information Patient not taking.Reported on 12/19/2024 senna (SENOKOT) 8.6 MG Tablet Take 1 Tablet by mouth 2 times daily as needed for Constipation - 2nd line. 30 Tablet 4 Active Additional Information Patient not taking.Reported on 12/19/2024 HYDROcodone-vivian taminophen (NORCO) 10-325 MG TabletIndicatio ns:Greater trochanter fracture Take 1 Tablet by mouth every 6 hours as needed for Moderate or more severe pain. 30 Tablet 4 Active Additional Information Patient not taking.Reported on 12/19/2024 naloxone HCl (Narcan) 4 MG/0.1ML Liquid 1 [place] by Nasal route as needed for Opioid Reversal. Administer in one nostril for symptoms of overdose (severe sleepiness, breathing problems, not responsive). Call 911. May repeat 1 spray in alternate nostril in 2-3 minutes if needed. 2 Each 4 Active Additional Information Patient not taking.Reported on 12/19/2024 Continuous Glucose Transmitter (Dexcom G6 Transmitter) Misc USE 1 EACH BY DOES NOT APPLY ROUTE EVERY 90 DAYS. CHANGE TRANSMITTER EVERY 90 DAYS. 1 Each 4 Active ondansetron (ZOFRAN-ODT) 4 MG TABLET DISPERSIBLE Take 1 Tablet by mouth every 6 hours as needed for Nausea - 1st line. 10 Tablet 1 4 Active Additional Information Patient not taking.Reported on 12/19/2024 Continuous Glucose Sensor (Dexcom G7 Sensor) Misc Every 10 days 9 Each 3 4 Active testosterone cypionate (DEPO-TESTOSTER ONE) 200 MG/ML Solution INJECT 1 ML EVERY 2 WEEKS BY INTRAMUSCULAR ROUTE FOR 30 DAYS.-PRIOR AUTH DENIED 5 Active Insulin Pen Needle 31G X 5 MM Misc Use to inject insulin twice daily 200 Pen Needle 3 5 Active Ozempic, 2 MG/DOSE, 8 MG/3ML Solution Pen-injector 2 mg by Subcutaneous route once a week. 9 mL 1 5 Active sildenafil (REVATIO) 20 MG Tablet 100 mg daily as needed for ED 5 Active Additional Information Patient not taking.Reported on 12/19/2024 Continuous Glucose Human Resources Services Specialist (Dexcom G7 Human Resources Services Specialist) Device Use to check blood glucose 4x daily. 1 Each 5 Active metFORMIN (GLUCOPHAGE) 1000 MG Tablet TAKE 1 TABLET BY MOUTH TWICE A DAY WITH FOOD 180 Tablet 1 5 Active insulin regular human, CONCENTRATED, (HumuLIN R U-500 KwikPen) 500 UNIT/ML Solution Pen-injector 120 units in the morning and 180 units in the evening 60 mL 1 5 Active Active Problems Problem Noted Date Diagnosed Date HLD (hyperlipidemia) 10/08/2023 GERD (gastroesophageal reflux disease) 4 Diabetes mellitus 10/08/2023 SBO (small bowel obstruction) [...] Description 12/19/2024 8:45 AM CDT Office Visit [facility] - Endocrinology - [place] [address] [place] [address] Trace Meza MD Type 2 diabetes mellitus with hyperglycemia, with long-term current use of insulin (HCC) (Primary Dx); Class 3 severe obesity due to excess calories with serious comorbidity and body mass index (BMI) of 40.0 to 44.9 in adult; Insulin dose changed (HCC); Medication side effect; Hypoglycemia Discharge Disposition: Discharged to home or Selfcare 12/19/2024 Travel 12/16/2024 Refill [facility] - [facility] - [place] [address] [place] [address] Trace Meza MD Medication Refill from Last [...] drink = 0.6 oz pur e alcohol) [facility] Utilities Answer Date Recorded In the past 12 months has th e [employer], gas, oil, or water [employer] threatened to shut off services in your [...] place to sleep or slept in a alf (including now)? No 10/07/2023 Sexually Active Control Partners Comments Yes Female Sex and Gender Information Value Date Recorded Sex Assigned at Male 06/17/2024 6:48 AM TABLE GAMES DEALER Legal Sex Male 11:35 PM CDT Gender Identity Male 06/17/2024 6:48 AM TABLE GAMES DEALER Sexual Orientation Not on file Last Filed [...] 170.2 cm (5' 7) 06/17/2024 6:28 AM TABLE GAMES DEALER Body Mass Index 42.16 06/17/2024 6:28 AM TABLE GAMES DEALER Plan of Treatment Upcoming Encounters Date Type Department Care Team (Late st Contact Info) Description 03/22/2025 9:00 AM CDT Office Visit [facility] - [facility] - [place] [address] [place] [address] Trace Meza MD [address] [address] Health Maintenance Due Date Last Done Comments Diabetes: Eye Exam 1976 Hepatitis C Virus (HCV) Screening 1976 Hepatitis B Immunization (1 of 3 - 19+ 3-dose series) 1995 Pneumococcal Immunization Combined (1 of 2 - PCV) 1995 Cologuard 2021 Colonoscopy 2021 Colorectal Cancer Screening 2021 Immunochemical Fecal Occult Blood 2021 Influenza Immunization (#1) 2025 SARS-COV-2 Immunization () 02/20/2025 Diabetes: Foot Exam 05/16/2025 05/16/2024 Diabetes: Nephropathy [...] this topic Medical Devices Implanted Type Area Handhole Machine Operator Device Identifier Shelf Expiration Date Model / Serial / Lot Mesh Srg Ventralight St Sepra Echo Ps 9x7in Mfl Ltwt Abs Loprfl Strl Seprafilm Polyp Hydrogel - [id number] Implanted:Qty: 1 on 07/03/2018 by Mehran Del Cid MD at [facility] IMPLANT N/A: Abdomen [employer] 03/19/2020 [id number] / [id number] / [id number] Procedures Procedure Name Priority Date/Time Associated Diagnosis Comments POCT GLYCOSYLATED HEMOGLOBIN Routine 12/19/2024 8:47 AM CDT Type 2 diabetes mellitus with hyperglycemia, with long-term current use of insulin (HCC) CMP (COMPREHENSIVE METABOLIC PANEL) STAT 06/17/2024 6:43 AM TABLE GAMES DEALER from Last 3 Months or Most Recently Relevant to Health Maintenance Results * (ABNORMAL) POCT GLYCOSYLATED HEMOGLOBIN (12/19/2024 8:47 AM CDT) HGB-A1C 12.4(A) 4 - 6 % Blood 12/19/2024 8:47 AM CDT Trace Meza MD POINT OF CARE TESTING (MANUAL) F inal Result * (ABNORMAL) Comprehensive Metabolic Panel (Cmp) [id number] (06/17/2024 6:43 AM [facility]) SODIUM 139 136 - 145 mmol/L 06/17/2024 7:11 AM [facility] POTASSIUM 3.9 3.5 - 5.1 mmol/L 06/17/2024 7:11 AM [facility] CHLORIDE 110(H) 98 - 107 mmol/L 06/17/2024 7:11 AM [facility] CO2, VENOUS 21(L) 22 - 30 mmol/L 06/17/2024 7:11 AM [facility] ANION GAP 11.9 <18.0 mmol/L 06/17/2024 7:11 AM [facility] GLUCOSE 164(H) 70 - 99 mg/dL 06/17/2024 7:11 AM [facility] BUN 15 9 - 21 mg/dL 06/17/2024 7:11 AM [facility] CREATININE, BLOOD 1.09 0.70 - 1.30 mg/dL 06/17/2024 7:11 AM [facility] BUN/CREATININE RATIO 14 12 - 20 ratio 06/17/2024 7:11 AM [facility] TOTAL PROTEIN 6.7 6.3 - 8.2 g/dL 06/17/2024 7:11 AM [facility] ALBUMIN 3.6 3.5 - 5.0 g/dL 06/17/2024 7:11 AM [facility] A/G RATIO 1.2 1.0 - 2.2 06/17/2024 7:11 AM [facility] CALCIUM 9.2 8.7 - 10.5 mg/dL 06/17/2024 7:11 AM [facility] T BILI 0.6 0.2 - 1.2 mg/dL 06/17/2024 7:11 AM [facility] SGOT (AST) 16 5 - 34 U/L 06/17/2024 7:11 AM TABLE GAMES DEALER [facility] SGPT (ALT) 12 0 - 55 U/L 06/17/2024 7:11 AM TABLE GAMES DEALER [facility] ALKALINE PHOSPHATASE 72 40 - 150 U/L 06/17/2024 7:11 AM TABLE GAMES DEALER [facility] GFR, ESTIMATED >60 >=60 06/17/2024 7:11 AM TABLE GAMES DEALER [facility] Comment: Creatinine Clearance is the preferred criteria for selecting drug dose adjustments in renally impaired patients. The GFR is provided as additional pertinent clinical information. GFR is reported in mL/min/1.73 sq m. Calculation based on the Chronic Kidney Disease Epidemiology Collaboration (CKD- EPI) equation refit without adjustment for race. GFR, EST. >60 >=60 024 7:11 AM TABLE GAMES DEALER [facility] GFR, EST. NONAFRICAN >60 >=60 06/17/2024 7:11 AM TABLE GAMES DEALER [facility] Blood Venipuncture / Unknown 06/17/2024 6:43 AM TABLE GAMES DEALER 06/17/2024 6:48 AM TABLE GAMES DEALER Jono Bhatti MD CHEMISTRY ORDERABLES Final Result Performing Organization Address City/State/[facility] Co de Phone Number [facility] [address] [place] [address] from Last 3 Months or Most Recently Relevant to Health Maintenance Insurance MEDICAID AETNA [facility] Advance Directives * Full Code (Latest Code [...] measures to stabilize the patient. Care Teams Materials Manager Relationship Specialty Start Date End Date Provider, None [place] PCP - General 06/17/24 Trace Meza MD [address]2 [facility] [address] [place] [address] Consulting Physician Endocrinology 04/06/23 Ld Crowley MD [address]2 [facility] [address] [place] [address] Consulting Physician Urology 09/21/23
--- OUTSIDE RECORDS SUMMARY | 2025-03-14 01:54 | XMS_ITS | Encounter Summary ---
Author Organization [facility] Address [address] [place] [address] Phone Care Team Providers Care Inspectors And Regulatory Officers Name Role Phone Ori Santiago MD Primary Care Provider [phone] Trace Meza MD Unavailable Ld Crowley MD Unavailable [phone] Provider, None Primary Care Provider Unavailabl e Reason for Visit * Reason Comments Medication Refill Encounter Details Date Type Department Care Team (Late st Contact Info) Description 08/19/2023 Refill [facility] - [place] [address] [place] [address] Traec Meza MD [address] [address] Medication Refill Social History Tobacco Use Types Packs/Day Years Used Date Smoking Tobacco: Never Smokeless Tobacco: Never Alcohol Use Standard Drinks/Week Comments No 0 (1 standard drink = 0.6 oz pur e alcohol) Sexually Active Control Partners Comments Yes Female Sex and Gender Information Value Date Recorded Sex Assigned at Male 06/17/2024 6:48 AM AUTO ENGINE MECHANIC Legal Sex Male 11:35 PM CDT Gender Identity Male 06/17/2024 6:48 AM AUTO ENGINE MECHANIC Sexual Orientation Not on file documented as of this encounter Miscellaneous Notes * Telephone Encounter - Lisa Lennon, RN - 08/19/2023 3:34 PM AUTO ENGINE MECHANIC Requested Prescriptions Pending Prescriptions Disp Refills Continuous Blood Gluc Sensor (Dexcom G6 Sensor) Misc [Pharmacy Med Name: DEXCOM G6 SENSOR] 5 Sig: USE 1 EACH BY DOES NOT APPLY ROUTE EVERY 10 DAYS. CHANGE SENSOR EVERY 10 DAYS. Next appt: 09/08/2023 ENGINE MECHANIC * Telephone Encounter - Serena Love RMA - 08/19/2023 2:47 PM CST Patient also wanted to let you know that he stopped taking the victoza, it gave him bad anxiety along with pretty bad stomach pains ENGINE MECHANIC documented in this encounter Plan of Treatment Upcoming Encounters Date Type Department Care Team (Late st Contact Info) Description 03/22/2025 9:00 AM CDT Office Visit [facility] - [place] [address] [place] [address] Trace Meza MD [address] [phone] documented as of this encounter Visit Diagnoses Not on filedocumented in this encounter Care Teams Inspectors And Regulatory Officers Relationship Specialty Start Date End Date Ori Santiago MD [address] [place] [address] [facility] [address] [place] [address] PCP - General Primary Care 06/19/22 06/16/24 Provider, None [place] PCP - General 06/17/24 Trace Meza MD [address] [address] Consulting Physician Endocrinology 04/06/23 Ld Crowley MD [address], [facility] [address] [place] [address] Consulting Physician Urology 09/21/23 documented as of this encounter
--- OUTSIDE RECORDS SUMMARY | 2025-03-14 01:54 | XMS_ITS | Clinical Summary ---
Author Organization [id number] Address [address] [place] [address] Care Team Providers Care Furnace Hand Name Role Phone Unknown, Provider Primary Care Provider Unavaila ble Source Comments [id number],non-owned Affiliates and Associated Physician Practices is amultiple site organization consisting of ambulatory clinics and hospital sitesin [place], [place], [place] and [place]. This disclosure is being madepursuant to the Care Everywhere program and may not contain all information available regarding this patient. Last updated 18.[id number] Allergies Active Allergy Reactions Criticality Noted Date [...] on file Legal Sex Male 6:18 AM CURTAIN FITTER Gender Identity Not on file Sexual Orientation [...] 156 kg (344 lb) 04/28/2018 4:50 PM CURTAIN FITTER Height 170.2 cm (5' 7) 04/28/2018 4:50 PM CURTAIN FITTER Body Mass Index 53.88 04/28/2018 4:50 PM CURTAIN FITTER Plan of Treatment Health Maintenance Due Date [...] this topic Medical Devices Implanted Type Area Senior Chemical Process Engineer Device Identifier Shelf Expiration Date Model / Serial / Lot 2.4 Mm Cortex Screws Self Tapping 16mm Implanted:Qty: 1 on 10/24/2017 by Tracy Whelan MD at [facility] Left: Radius [employer]s Trauma 201.646 / / 2.4 Mm Cortex Screws Self Tapping 18mm Implanted:Qty: 2 on 10/24/2017 by Tracy Whelan MD at [facility] Left: Radius Synthes Trauma 201.648 / / Screw Bn 2.7mm 16mm Lc Dcp Ss [address] St Ns Implanted:Qty: 1 on 10/24/2017 by Tracy Whelan MD at [facility] Left: Radius Synthes Usa 204.816 / / Plate [id number] 14 Hl Lmt Cntct Tpr Implanted:Qty: 1 on 10/24/2017 by Tracy Whelan MD at [facility] Left: Radius Synthes Usa 223.641 / / Graft Bone Ac Cnxs Ntr Dbm 5cc Ptty Syr - [id number] Implanted:Qty: 1 on 10/24/2017 by rTacy Whelan MD at [facility] Left: Radius [employer] 02/16/2018 02-3000-05 0 / [id number] / [id number] Screw 35mm 18mm Implanted:Qty: 1 on 10/24/2017 by Tracy Whelan MD at [facility] Left: Radius Synthes Usa 204.818 / / Screw 35mm 20mm Implanted:Qty: 1 on 10/24/2017 by Tracy Whelan MD at [facility] Left: Radius 204.820 / / Screw Bn 3.5mm 22mm Lcp Ss [address] Ns Sm Implanted:Qty: 1 on 10/24/2017 by Tracy Whelan MD at [facility] Left: Radius Synthes Usa 204.822 / / Explanted Type Area Senior Chemical Process Engineer Device Identifier Shelf Expiration Date Model / Serial / Lot [place] Tefl 6 X 6 Full Sht Explanted:Qty: 1 on 10/24/2017 by Tracy Whelan MD at [facility] Left: Wrist Bard Peripheral Vascular 08/19/2022 [id number] / / [id number] Procedures Procedure Name Priority Date/Time Associated Diagnosis Comments BASIC METABOLIC PANEL (CALCIUM TOTAL) STAT 10/26/2017 5:59 AM CDT HEMOGLOBIN A1C Routine 10/25/2017 5:28 AM CDT from Last 3 Months or Most Recently Relevant to Health Maintenance Results * (ABNORMAL) BASIC METABOLIC PANEL (CALCIUM TOTAL) (10/26/2017 5:59 AM CDT) BUN 7 7 - 26 mg/dL 10/26/2017 7:26 AM CDT [facility] Creatinine 0.8 0.6 - 1.2 mg/dL 10/26/2017 7:26 AM CDT [facility] Sodium 135(L) 136 - [...] 10/26/2017 5:59 AM CDT 10/26/2017 6:52 AM [facility] Mark Goncalves MD LAB - CHEMISTRY ORDERABLES Final Result [facility] [address] [place] [address] * (ABNORMAL) HEMOGLOBIN A1C (10/25/2017 5:28 AM [...] Equal to or greater than 6.5% Reference: [place] Diabetes Association Standards of Care in Diabetes -2014 In patients 70 years and older consider HbA1c target range of 7.0-7.5% Reference: Diabetes Mellitus in Older People: Position Statement on behalf of the International Association of Gerontology and Geriatrics (IAGG), the Diabetes Working Republican for Older People (EDWPOP), and the International Task Force of Experts in Diabetes. Moe Grimm et al. J [place] Medical Directors Association. 2012 Test results diagnostic [...] LAB - CHEMISTRY ORDERABLES Fi nal Result [address] [phone] from Last 3 Months or Most Recently Relevant to Health Maintenance Insurance [employer] Advance Directives * Full Code (Latest Code Status on File) Date Activated Date Inactivated Comments 10/24/2017 1:55 PM 10/26/2017 6:13 PM * Full Code Date Activated Date Inactivated Comments 10/23/2017 11:22 PM 10/24/2017 1:55 PM Care Teams Furnace Hand Relationship Specialty Start Date End Date Unknown, Provider PCP - General 11/04/17
--- OUTSIDE RECORDS SUMMARY | 2025-03-14 01:54 | XMS_ITS | Encounter Summary ---
Author Organization [facility] Address [address] [place] [address] Phone Care Team Providers Care Utility Worker Roller Shop Name Role Phone Ori Santiago MD Primary Care Provider [phone] Trace Meza MD Unavailable Ld Crowley MD Unavailable [phone] Provider, None Primary Care Provider Unavailabl e Reason for Visit * Reason Comments Medication Refill Encounter Details Date Type Department Care Team (Late st Contact Info) Description 02/12/2023 Refill [facility] - [place] [address] [place] [address] Trace Meza MD [address] [phone] Medication Refill Social History Tobacco Use Types Packs/Day Years Used Date Smoking Tobacco: Never Smokeless Tobacco: Never Alcohol Use Standard Drinks/Week Comments No 0 (1 standard drink = 0.6 oz pur e alcohol) Sexually Active Control Partners Comments Yes Female Sex and Gender Information Value Date Recorded Sex Assigned at Male 06/17/2024 6:48 AM HOSPICE OFFICE COORDINATOR Legal Sex Male 11:35 PM CDT Gender Identity Male 06/17/2024 6:48 AM HOSPICE OFFICE COORDINATOR Sexual Orientation Not on file documented as [...] Visit [facility] - [place] [address] [place] [address] Trace Meza MD #[address] [address] documented as of this encounter Visit Diagnoses Not on filedocumented in this encounter Care Teams Utility Worker Roller Shop Relationship Specialty Start Date End Date Ori Santiago MD 4 [facility] [address] [place] [address] PCP - General Primary Care 06/19/22 06/16/24 Provider, None [place] PCP - General 06/17/24 Trace Meza MD #2 [facility] [address] [place] [address] Consulting Physician Endocrinology 04/06/23 Ld Crowley MD #[address] [facility] [facility] [address] [place] [address] Consulting Physician Urology 09/21/23 documented as of this encounter
--- OUTSIDE RECORDS SUMMARY | 2025-03-14 01:54 | XMS_ITS | Encounter Summary ---
Author Organization [facility] Address [address] [place] [address] Phone Care Team Providers Care Golf Course Superintendent Name Role Phone Ori Santiago MD Primary Care Provider [phone] Trace Meza MD Unavailable Ld Crowley MD Unavailable [phone] Provider, None Primary Care Provider Unavailabl e Reason for Visit * Reason Comments Medication Refill Encounter Details Date Type Department Care Team (Late st Contact Info) Description 12/16/2022 Refill [facility] - [place] [address] [place] [address] Trace Meza MD #[address] [phone] Medication Refill Social History Tobacco Use Types Packs/Day Years Used Date Smoking Tobacco: Never Smokeless Tobacco: Never Alcohol Use Standard Drinks/Week Comments No 0 (1 standard drink = 0.6 oz pur e alcohol) Sexually Active Control Partners Comments Yes Female Sex and Gender Information Value Date Recorded Sex Assigned at Male 06/17/2024 6:48 AM REAL ESTATE LEGAL ASSISTANT Legal Sex Male 11:35 PM CDT Gender Identity Male 06/17/2024 6:48 AM REAL ESTATE LEGAL ASSISTANT Sexual Orientation Not on file COVID-19 Exposure [...] Visit [facility] - [place] [address] [place] [address] Trace Meza MD #[address] [address] documented as of this encounter Visit Diagnoses Not on filedocumented in this encounter Care Teams Golf Course Superintendent Relationship Specialty Start Date End Date Ori Santiago MD [address] [place] [address] [address] [place] [address] PCP - General Primary Care 06/19/22 06/16/24 Provider, None [place] PCP - General 06/17/24 Trace Meza MD #2 [facility] [address] [place] [phone] Consulting Physician Endocrinology 04/06/23 Ld Crowley MD #2 [facility] [address] [place] [address] Consulting Physician Urology 09/21/23 documented as of this encounter
--- OUTSIDE RECORDS SUMMARY | 2025-03-14 01:54 | XMS_ITS | Clinical Summary ---
Author Organization [facility] Medical Office Building B Address [address] [place] [address] Care Team Providers Care Secretary Specialist Name Role Phone Miscellaneous, Not In File [...] patient on diabetic diet - Agree with agricultural extension educator consult. Please have patient meet [...] Type Department Care Team Description 02/23/2025 Telephone [facility] Orthopedics and Sports Medicine [address] [facility] [address] [address] Douglas Trotter DO MRI 02/17/2025 11:45 AM CDT Ancillary Procedure [facility] Imaging at [address] [phone] Pain of right hip 02/17/2025 11:30 AM CDT Office Visit [facility] Sports Medicine and Primary Care at [address] [place] [phone] Douglas Trotter DO Chronic right hip pain [...] on file Legal Sex Male 12:20 AM MANAGER ENDOSCOPY Gender Identity Not on file Sexual Orientation [...] Completed 12/17/2017 Medical Devices Implanted Type Area Systems Support Engineer Device Identifier Shelf Expiration Date Model [...] Douglas Foote M.D. MJ T: Report ID: [id number] Reading Location: [id number] Procedure Note Douglas Foote MD - 02/17/2025 [...] Douglas Foote M.D. MJ T: Report ID: [id number] Reading Location: [place] [address] Douglas Trotter DO IMG XR PROCEDURES Julieta [...] ORDERABLES Julieta l Result Performing Organization Address City/[facility]/ZIP Co de Phone Number [facility] [place] [address] * (ABNORMAL) Hemoglobin A1c (02/01/2018 4:04 AM CDT) Hgb A1C 9.8(H) 4.0 - 5.6 % [facility] Estimated Average Glucose 235 mg/dL [facility] Comment: The ADA recommends reporting an estimated Average Glucose (eAG) with all Hemoglobin A1c results using the equation derived from a study of 507 normal and diabetic adults. Minority populations were underrepresented and children were not included. (Diabetes Care 31:3399-1529, 2008). The eAG is not equivalent to a fasting glucose. Blood specimen (specimen) 02/01/2018 4:04 AM CDT 02/01/2018 4:11 AM CDT Narrative [facility] - 02/01/2018 6:34 AM CDT THE COLLECTION LOCATION IS [facility] ED2-30 us George Manriquez MD LAB BLOOD ORDERABLES Fi nal Result Performing Organization Address [facility] Co de Phone Number [facility] [place] [address] * (ABNORMAL) Lipid panel (01/31/2018 11:38 PM CDT) Cholesterol 230(H) 30 - 200 mg/dL [facility] Comment: Interpretive Data Desirable: <200 mg/dL Borderline high: 200-239 mg/dL High: > or = 240 mg/dL Literature Reference: National Cholesterol Education Program (NCEP) Expert Panel on Detection, Evaluation, and Treatment of High Blood Cholesterol in Adults (Adult Treatment Panel III). Circulation 2004; 110:227. Current interpretive data was last revised on 2015. Triglycerides 239(H) 0 - 150 mg/dL [facility] Comment: Interpretive Data Desirable: < 150 mg/dL Borderline High: 150 - 199 mg/dL High: 200 - 499 mg/dL Very High: > or = 499 mg/dL Literature Reference: See Cholesterol Current interpretive data was last revised on 2015. HDL 41 >=40 mg/dL [facility] Comment: Interpretive Data Less than 40 mg/dL - low; A major risk factor for heart disease. Greater than or equal to 60 mg/dL - High; considered protective of heart disease. Literature Reference: See Cholesterol Current interpretive data was last revised on 2015. LDL, calculated 141(H) 10 - 129 mg/dL [facility] Comment: Interpretive Data Optimal: < 100 mg/dL Near Optimal: 100 - 129 mg/dL Borderline High: 130 - 159 mg/dL High: 160 - 189 mg/dL Very high: > or = 190 mg/dL Literature Reference: See Cholesterol Current interpretive data was last revised on 2015. Non-HDL Cholesterol 189 mg/dL [facility] Comment: Interpretive Data When triglycerides are >200 mg/dL, non-HDL C is a secondary target of therapy, with a goal 30 mg/dL higher than the identified LDL-C goal. Reference: See Cholesterol Reference. Current interpretive data was last revised 2015. Blood specimen (specimen) 01/31/2018 11:38 PM CDT 01/31/2018 11:52 PM CDT Narrative [facility] - 02/01/2018 4:58 PM CDT us Elvira Sinclair MD LAB BLOOD ORDERABLES Final Result [facility] Department [place] [address] * Hepatitis panel, acute (12/17/2017 12:34 PM CDT) Hep A IgM Negative Negative [facility] (IRAJ) Comment:Testing performed by : [facility], [address] [place] [address], [place]., [address] Hep B core IgM Negative Negative [facility] (IRAJ) Comment:Testing performed by : [facility], [address] [place] [address]., [address] Hep C Ab Negative Negative [facility] (IRAJ) Comment:Testing performed by : [facility], [address] [place] [address]., [id number] HepBsAg Negative Negative [facility] (IRAJ) Comment:Testing performed by : [facility], [address] [place] [address], [place]., [address] Blood specimen (specimen) 12/17/2017 12:34 PM CDT 12/17/2017 3:13 PM CDT Narrative [facility] (IR[facility]) - 12/17/2017 4:11 PM CDT Nabil Castorena MD LAB MICROBIOLOGY - GENERAL OR DERABLES Final Result [facility] (IRAJ) [address] [facility] Department [place] [address] * DIABETES FOOT EXAM (12/08/2017) Diabetic Foot Exam Unknown Historical Provider HEALTH MAINTENANCE Final Result * DIABETES EYE EXAM (08/19/2016) Diabetic Eye Exam Unknown Historical Provider HEALTH MAINTENANCE Final Result from Last 3 Months or Most Recently Relevant to Health Maintenance Insurance [facility] [employer] [facility] [place] [place] [address] Advance Directives For more information, please contact: [phone] * Full Code (Latest Code Status on File) Date Activated Date Inactivated Comments 02/01/2018 6:07 AM 02/02/2018 5:51 PM * Full Code Date Activated Date Inactivated Comments 12/12/2017 1:50 PM 12/23/2017 1:51 PM Care Teams Secretary Specialist Relationship Specialty Start Date End Date Miscellaneous, Not In File PCP - General 02/22/25
--- OUTSIDE RECORDS SUMMARY | 2025-03-14 01:54 | XMS_ITS | Encounter Summary ---
Author Organization [facility] Address [address] [place] [address] Phone Care Team Providers Care Salon Customer Experience Specialist Name Role Phone Ori Santiago MD Primary Care Provider [phone] Trace Meza MD Unavailable Ld Crowley MD Unavailable [phone] Provider, None Primary Care Provider Unavailabl e Reason for Visit * Reason Comments Medication Refill Encounter Details Date Type Department Care Team (Late st Contact Info) Description 03/16/2023 Refill [facility] - Endocr[facility]ology [facility] [address] [place] [address] Trace Meza MD [address] [phone] Medication Refill Social History Tobacco Use Types Packs/Day Years Used Date Smoking Tobacco: Never Smokeless Tobacco: Never Alcohol Use Standard Drinks/Week Comments No 0 (1 standard drink = 0.6 oz pur e alcohol) Sexually Active Control Partners Comments Yes Female Sex and Gender Information Value Date Recorded Sex Assigned at Male 06/17/2024 6:48 AM ANESTHESIOLOGY FELLOW Legal Sex Male 11:35 PM CDT Gender Identity Male 06/17/2024 6:48 AM ANESTHESIOLOGY FELLOW Sexual Orientation Not on file COVID-19 Exposure [...] Visit [facility] - Endocrinology - [place] [address] [place] [address] Trace Meza MD [address] [address] documented as of this encounter Visit Diagnoses Not on filedocumented in this encounter Care Teams Salon Customer Experience Specialist Relationship Specialty Start Date End Date Ori Santiago MD [address] [place] [address] [address] [place] [address] PCP - General Primary Care 06/19/22 06/16/24 Provider, None PA PCP - General 06/17/24 Trace Meza MD #2 [facility] [address] [place] [address] Consulting Physician Endocrinology 04/06/23 Ld Crowley MD #2 [facility] [address] [place] [address] Consulting Physician Urology 09/21/23 documented as of this encounter
--- OUTSIDE RECORDS SUMMARY | 2025-03-14 01:54 | XMS_ITS | Encounter Summary ---
Author Organization [facility] Address [address] [place] [address] Phone Care Team Providers Care [place] Name Role Phone Provider, None Primary Care Provider Unavailabl e Ori Santiago MD Primary Care Provider [phone] Trace Meza MD Unavailable Ld Crowley MD Unavailable Provider, None Primary Care Provider Unavailabl e Reason for Visit * Reason Comments Medication Refill Encounter Details Date Type Department Care Team (Late st Contact Info) Description 12/01/2021 Refill [facility] - End[facility] - [place] [address] [place] [address] Trace Meza MD #[address] [address] Medication Refill Social History Tobacco Use Types Packs/Day Years Used Date Smoking Tobacco: Never Smokeless Tobacco: Never Alcohol Use Standard Drinks/Week Comments No 0 (1 standard drink = 0.6 oz pur e alcohol) Sexually Active Control Partners Comments Yes Female Sex and Gender Information Value Date Recorded Sex Assigned at Male 06/17/2024 6:48 AM INFORMATICS PHARMACIST Legal Sex Male 11:35 PM CDT Gender Identity Male 06/17/2024 6:48 AM INFORMATICS PHARMACIST Sexual Orientation Not on file documented as [...] Visit [facility] - Endocrinology - [place] [address] [place] [address] Trace Meza MD #2 [facility] [address] [place] [phone] documented as of this encounter Visit Diagnoses Not on filedocumented in this encounter Care Teams [place] Relationship Specialty Start Date End Date Provider, None CT PCP - General 03/28/21 06/18/22 Ori Santiago MD [address] [place] [address] [facility] [address] [place] [address] PCP - General Primary Care 06/19/22 06/16/24 Provider, None CT PCP - General 06/17/24 Trace Meza MD #2 [facility] [address] [place] [phone] Consulting Physician Endocrinology 04/06/23 Ld Crowley MD #2 [facility] [address] [place] [address] Consulting Physician Urology 09/21/23 documented as of this encounter
[2025-03-14 02:02] LABS: Troponin I 0.026 ng/mL (0.000-0.034)
[2025-03-14 02:24] LABS: NT Pro B Type Natriuretic Pept 1100 pg/mL (19.9-100)
--- NOTE | 2025-03-14 03:23 | ED.CHESTPAIN ---
HPI - Chest Pain General Chief Complaint: Chest Pain Stated Complaint: chest pain Time Seen by Provider: 03/14/25 01:42 History of Present Illness HPI narrative: Patient presents with chest pain or shortness of breath ongoing for the last few weeks. Has had a slight cough. Related Data Allergies Allergy/AdvReac Type Severity Reaction Status Date / Time ibuprofen Allergy Mild Rash Verified 03/14/25 01:23 Review of Systems Review of Systems: All systems reviewed & are unremarkable except as noted in HPI and below Course Vital Signs Vital signs: Vital Signs Temperature 97.6 F 03/14/25 01:20 Pulse Rate 131 H 03/14/25 01:20 Respiratory Rate 129 H 03/14/25 01:20 Blood Pressure 211/113 H 03/14/25 01:20 Pulse Oximetry 95 03/14/25 01:20 Oxygen Delivery Room Air 03/14/25 01:20 Temperature 97.6 F 03/14/25 01:20 Pulse Rate 116 H 03/14/25 03:27 Respiratory Rate 21 H 03/14/25 03:27 Blood Pressure 134/91 H 03/14/25 03:27 Pulse Oximetry 95 03/14/25 03:27 Oxygen Delivery Room Air 03/14/25 01:46 MDM - Chest Pain MDM Narrative Medical decision making narrative: Patient presenting with chest pain and shortness for ongoing for last 1-2 weeks, on exam he does appear uncomfortable, he is tachycardic, I am highly concerned for PE. CT PE obtained on my independent interpretation does show bilateral PEs, I did get a call from the radiologist that he has signs of right heart strain. Given this I will plan for transfer and he see needs intervention. Heparin drip started. Discussed findings and plan with patient he was agreeable to transfer. Dr Diop accepting at [facility]. Lab Data 03/14/25 01:32 03/14/25 01:32 Labs: Lab Results 03/14/25 03/14/25 Range/Units 01:32 01:32 WBC 14.8 H (4.5-10.0) K/mm3 RBC 4.97 (4.6-6.20) M/mm3 Hgb 14.3 (14.0-18.0) g/dL Hct 42.4 (42.0-52.0) % MCV 85.3 (80-100) fl MCH 28.8 (26-34) pg MCHC 33.7 (32-36) g/dl RDW 12.7 (11.5-14.5) % Plt Count 291 (150-375) k/mm3 MPV 9.6 (7.4-10.4) fl Immature Gran % (Auto) 0.8 H (0-0.5) % Neut % (Auto) 58.2 (45.5-73.1) % Lymph % (Auto) 28.9 (18.3-44.2) % [place] % (Auto) 7.8 (2.6-8.5) % Eos % (Auto) 3.4 (0-4.4) % Baso % (Auto) 0.9 (0.2-1.2) % Lymph # (Auto) 4.29 H (0.9-3.2) K/mm3 [place] # (Auto) 1.2 H (0.1-0.6) K/mm3 Eos # (Auto) 0.5 H (0-0.3) K/mm3 Baso # (Auto) 0.1 (0.0-0.1) K/mm3 Abs Immat Gran (auto) 0.12 H (0.00-0.031) K/mm3 Absolute Neuts (auto) 8.6 H (1.3-6.7) K/mm3 Absolute Nucleated RBC 0.000 (0.0-0.012) K/mm3 Nucleated RBC % 0.0 (0.0-0.2) % PT 12.9 (11.1-14.7) Seconds INR 1.0 APTT 27.2 (22.3-36.8) Seconds D-Dimer 10.11 H (<0.48) ug/mL Sodium 133 L (137-145) mmol/L Potassium 4.1 (3.4-5.0) mmol/L Chloride 102 (98-107) mmol/L Carbon Dioxide 18 L (22-30) mmol/L Anion Gap 13 H (4-12) mmol/L BUN 23 H (9-20) mg/dL Creatinine 1.44 H (0.7-1.3) mg/dL Estim Creat Clear Calc Not Reportable Estimated GFR 52 L (59 - ) Glucose 482 H (65-110) mg/dL Calcium 8.5 (8.4-10.2) mg/dL Total Bilirubin 0.4 (0.2-1.3) mg/dL AST 33 (17-59) U/L ALT 24 (6-50) U/L Alkaline Phosphatase 141 H (38-126) U/L Troponin I 0.026 Cancelled (0.000-0.034) ng/mL NT-Pro-B Natriuret Pep 1100 H (19.9-100) pg/mL Total Protein 7.1 (6.3-8.2) g/dL Albumin 3.7 (3.5-5.1) g/dL Lipase 176 (23-300) U/L Critical Care Time Critical Care Time Critical Care Time: Yes Total Critical Care Time: 31 Discharge Plan Discharge Clinical Impression: Pulmonary embolism Patient Disposition: Acute Care Hospital Condition: Serious Patient Language: [place] Islander Prescriptions: No Action lisinopril 20 mg tablet 20 mg PO DAILY Qty: 30 0RF Follow-up/Referrals: PHYSICIAN,VEHICLE MAINTENANCE SUPERVISOR [Primary Care Provider, Internal Medicine]
--- NOTE | 2025-03-14 04:06 | ECG_ITS ---
Test Date: 2025-03-14 04:53:12 Measurements Intervals [place] Rate: 121 P: 42 NM: 137 QRS: 28 QRSD: 89 T: 45 QT: 318 QTc: 452 Interpretive Statements SINUS TACHYCARDIA ABNORMAL RHYTHM ECG Compared to ECG 03/14/2025 01:24:40 NO SIGNIFICANT CHANGE Electronically Signed On 03-14-2025 12:28:39 CDT by Douglas Fernandes M.D.
[2025-03-14] MEDS: HEPARIN SOD/D5W 100 UNITS/ML 25,000 UNITS/250 ML BAG 15 UNITS IV CONT (04:41)
[2025-03-14 05:24] LABS: INR 0.9; Prothrombin Time 12.7 Seconds (11.1-14.7)
[2025-03-14 05:25] LABS: Partial Thromboplastin Time 27.7 Seconds (22.3-36.8)
[2025-03-14 05:29] LABS: Troponin I 0.164 ng/mL (0.000-0.034)
--- NOTE | 2025-03-14 07:40 | ECG_ITS ---
Test Date: 2025-03-14 07:43:44 Measurements Intervals [place] Rate: 114 P: 41 [place]: 137 QRS: 26 QRSD: 85 T: 60 QT: 343 QTc: 474 Interpretive Statements SINUS TACHYCARDIA OTHERWISE WITHIN NORMAL LIMITS ABNORMAL RHYTHM ECG Compared to ECG 03/14/2025 04:53:12 NO DIFFERENT Electronically Signed On 03-14-2025 12:32:12 CDT by Douglas Fernandes M.D.
[2025-03-14 08:22] LABS: Troponin I 0.247 ng/mL (0.000-0.034)
== END 2025-03-14 09:19 | disposition short-term general hospital (02) ==
PROVIDERS: Emergency Provider Emergency Medicine
DX: I26.99 Other pulmonary embolism without acute cor pulmonale (principal); R94.31 Abnormal electrocardiogram [ECG] [EKG]; R00.0 Tachycardia, unspecified
CPT/HCPCS: 36415; 71046; 71275; 80053; 83690; 83880; 84484; 85025; 85380; 85610; 85730; 93005; 96374; 99285; J1644; Q9967